=== PATIENT | female | born 1960 | race African-American/Black ===

== ENCOUNTER → 2023-10-25 09:37 | Outpatient (REF) | payer OTHER, SELFPAY | LOC: RCS 09:37 | PROVIDERS: ATTENDING PHYSICIAN Family Medicine | DX: Z13.6 Encounter for screening for cardiovascular disorders (principal) | CPT/HCPCS: 93005 ==

== ENCOUNTER → 2023-11-04 10:34 | Outpatient (REF) | payer OTHER, SELFPAY | LOC: RAD 10:34 | PROVIDERS: ATTENDING PHYSICIAN Family Medicine | DX: R10.9 Unspecified abdominal pain (principal) | CPT/HCPCS: 76700 ==

== ENCOUNTER → 2023-11-22 08:32 | Outpatient (REF) | payer OTHER, SELFPAY | LOC: RCS 08:32 | PROVIDERS: ATTENDING PHYSICIAN Family Medicine | DX: I45.0 Right fascicular block (principal) | CPT/HCPCS: 93306 ==

== ENCOUNTER → 2024-04-11 10:22 | Outpatient (REF) | payer OTHER, MEDICAID, SELFPAY | LOC: RAD 10:22 | PROVIDERS: ATTENDING PHYSICIAN Physician Assistant; FAMILY PHYSICIAN Family Medicine | DX: K59.00 Constipation, unspecified (principal) | CPT/HCPCS: 74018 ==

== ENCOUNTER 2024-04-28 13:26 | Emergency (ER) | payer OTHER, SELFPAY ==
[2024-04-28] VITALS (7 sets, daily range): BP systolic 123–156; BP diastolic 59–74; BMI 33.4
[2024-04-28] MEDS: TYLENOL 1000 MG PO (14:01)
[2024-04-28 14:14] LABS: % Basophils 0.2 % (0-2); % Immature Granulocytes 0.7 % (0-0.5); % Lymphocytes 4.5 % (20.5-51.1); % Neutrophils 89.6 % (42.2-75.2); Absolute Immature Granulocytes 0.1 10^3/uL (0-0.05); Absolute Lymphocytes 0.4 10^3/uL (1.2-3.4); Absolute Monocytes 0.4 10^3/uL (0.1-0.6); Absolute Neutrophils 7.8 10^3/uL (1.4-6.5); Hematocrit 39.5 % (37.0-47.0); Hemoglobin 12.8 g/dL (12.0-16.0); Mean Corp Hgb Conc. 32.4 g/dL (33.0-37.0); Mean Corpuscular Hgb 28.7 pg (27.0-31.0); Mean Corpuscular Volume 88.6 fL (81.0-99.0); Mean Platelet Volume 9.7 fL (7.4-10.4); Nucleated Red Blood Cells % 0 %; Platelet Count 184 10^3/uL (130-400); Red Blood Cell Count 4.46 10^6/uL (4.20-5.40); Red Cell Dist. Width 14.8 % (11.5-14.5); White Blood Cell Count 8.7 10^3/uL (4.8-10.8)
[2024-04-28 14:44] LABS: Lactic Acid 4.5 mmol/L (0.7-2.0)
[2024-04-28 14:45] LABS: Glucose 305 mg/dl (70-99)
[2024-04-28 14:46] LABS: Blood Urea Nitrogen 14 mg/dl (7-17); Calcium 11.1 mg/dl (8.4-10.2); Carbon Dioxide 22 mmol/L (22-30); Chloride 108 mmol/L (98-107); Estimated Creatinine Clearance 69 ml/min; Sodium 142 mmol/L (135-145); eGFR > 60.00
[2024-04-28 15:35] LABS: COVID-19 Antigen Negative (Negative)
--- NOTE | 2024-04-28 15:46 | ED.GENMED ---
History of Present Illness
General
Chief Complaint: Fever
Source: patient
Exam Limitations: none
Time Seen by Provider: 04/28/24 14:55
Nursing documentation reviewed up to this point in time: agreed with
History of Present Illness
History of Present Illness:
Patient with history of schizophrenia and schizoaffective disorder, presents to ED from [facility], secondary to fever. Patient reports decreased appetite along with mid abdominal discomfort. Denies vomiting or diarrhea. Denies headache.
Denies sore throat. Denies chest pain. Denies coughing. Denies rash. Denies dizziness.
Past History
Past History
ED Past Medical History: CAD, HTN, Hypothyroidism, Psychiatric and Other
ED Past Surgical History: None
Social History
Tobacco: Smoker
Alcohol: None
Drug: None
Personal: Single
Living: other ([facility])
Family History
Family History: Negative Diabetes, Hypertension or CAD
Review of Systems
Review of Systems
Allergies reviewed?: Yes
All Other Systems: ROS reviewed and negative except as documented in HPI and ROS
Constitutional: Reports fever
EENT: Reports no symptoms
Respiratory: Reports no symptoms; Denies cough
Cardiac: Reports no symptoms; Denies chest pain or palpitations
ABD/GI: Reports abdominal pain; Denies vomiting or diarrhea
: Reports no symptoms
Musculoskeletal: Reports no symptoms
Skin: Reports no symptoms
Neurological: Reports no symptoms
Phy Exam
Physical Exam
Physical Exam:
Physical Exam
General: no apparent distress, not acutely ill. febrile
Head: nc/at. eomi
Neck: supple. no meningeal signs.
Heart: tachycardic, no murmur. equal radial pulses.
Lungs: no acute respiratory distress. clear bilaterally
Abdomen: normal bowel sounds. not tender.
Neuro: alert and oriented. no focal neurological deficits
Skin: no rash
Psychiatric: well kept. interactive and cooperative
Extremities: no edema. no calf tenderness.
Sepsis
Sepsis Screening
Sepsis Assessment: Sepsis Ruled Out
Sepsis Screen
Sepsis Screen: Sepsis Ruled Out
Date: 04/28/24
Time: 22:50
Course
Orders/Labs/Results
Orders:
Orders
04/28/24 13:57
Basic Metabolic Panel Urgent
Complete Blood Count/With Diff Urgent
Lactic Acid Urgent
04/28/24 14:00
Acetaminophen [Tylenol] 1,000 mg .ROUTE .STK-MED ONE
04/28/24 14:01
Acetaminophen [Tylenol] 1,000 mg PO NOW STA
04/28/24 15:08
COVID-19 Antigen Urgent
Source: Nasal Swab
Influenza A+B Rapid Molecular Urgent
RADHA Source: Nasal Swab
Specimen Description:
04/28/24 15:11
CT Abd/pelvis W Iv Cont Urgent
Comment:
Reason For Exam: fever with periumbilical tenderness
04/28/24 16:45
0.9% Sodium Chloride 500 ml [Nss] 500 ml IV BOLUS
Ibuprofen [Motrin] 400 mg PO NOW STA
04/28/24 17:30
Lactic Acid Urgent
Abnormal Lab Results
04/28/24
13:57
MCHC 32.4 L g/dL
(33.0-37.0)
RDW 14.8 H %
(11.5-14.5)
Abs Immat Gran (auto) 0.1 H 10^3/uL
(0-0.05)
Absolute Neuts (auto) 7.8 H 10^3/uL
(1.4-6.5)
Absolute Lymphs (auto) 0.4 L 10^3/uL
(1.2-3.4)
Immature Gran % 0.7 H %
(0-0.5)
Neutrophils % 89.6 H %
(42.2-75.2)
Lymphocytes % 4.5 L %
(20.5-51.1)
Chloride 108 H mmol/L
(98-107)
Glucose 305 H mg/dl
(70-99)
Lactic Acid 4.5 H* mmol/L
(0.7-2.0)
Calcium 11.1 H mg/dl
(8.4-10.2)
04/28/24 13:57
04/28/24 13:57
Vital Signs
Initial and Last Documented VS:
Initial Vital Signs
Temp Pulse Resp BP Pulse Ox
102.8 F H 122 32 156/73 96
04/28/24 13:30 04/28/24 13:30 04/28/24 13:30 04/28/24 13:30 04/28/24 13:30
Last Documented Vital Signs
Temp Pulse Resp BP Pulse Ox
99.3 F 104 31 125/65 95
04/28/24 20:00 04/28/24 19:45 04/28/24 13:45 04/28/24 19:00 04/28/24 17:45
MDM/Problems Addressed
MDM/Problems Addressed:
History and exam consistent with symptoms secondary to influenza. Patient given Tylenol/Motrin along with IV fluids, with improvement in symptoms. Patient otherwise is stable to be discharged back to her residence. In light of patient's
underlying psychiatric history along with continual bowel difficulties, I do not feel that patient would benefit from Tamiflu at this time. As such, patient will be discharged back to her retirement, with recommendation to continue Tylenol/Motrin
for fever along with continual hydration.
*Critical Care Note
Total Time (30-74mins, 75-104mins- exclusive of procedures): Not Applicable
ED Attending Note
-
Portions of this chart may have been created with voice recognition software.� Occasional wrong word or��sound alike� substitutions may have occurred due to the inherent limitations of voice recognition software.
Discharge Plan
Departure
Patient Disposition: Home (Routine Discharge)
Date of Disposition: 04/28/24
Time of Disposition: 18:31
Patient with high blood pressure during this ER visit?: Yes
Condition: Good
Discharge Problem:
Influenza
Instructions: Flu in adults - ED discharge instructions
Prescriptions:
No Action
clozapine 100 MG tablet
300 mg PO BID
levothyroxine 100 MCG tablet
100 mcg PO DAILY
lithium carbonate 300 MG capsule
600 mg PO HS
ranitidine HCl [Zantac] 150 MG tablet
150 mg PO BID
docusate sodium 100 MG capsule
100 mg PO DAILY
lithium carbonate 300 MG tablet
300 mg PO .AM
ibuprofen 200 MG tablet
200 mg PO PRN PRN (Reason: pain)
hydroxyzine pamoate [Vistaril] 25 MG capsule
25 mg PO Q6HPRN PRN (Reason: anxiety)
calcium carbonate-vitamin D3 [Oystercal-D] 1 EACH tablet
1 tab PO BID
clozapine 150 MG tablet,disintegrating
150 mg PO .5PM
acetaminophen 325 MG tablet
650 mg PO Q6 PRN (Reason: pain)
loperamide 2 MG capsule
2 mg PO TID PRN (Reason: diarrhea)
melatonin 3 MG tablet
3 mg PO HS
magnesium hydroxide 30 ML suspension
30 ml PO HSPRN PRN (Reason: constipation)
albuterol sulfate [Ventolin HFA] 90 MCG/PUFF HFA aerosol inhaler
2 puff inhalation Q6 PRN (Reason: sob)
olopatadine [Pataday] 2.5 ML drops
1 drp BOTH EYES DAILY PRN (Reason: allergic conjunctivitis)
cholecalciferol (vitamin D3) 2,000 UNIT tablet
1,000 unit PO DAILY
desmopressin 0.1 MG tablet
0.2 mg PO BID
Anti Gas 200
30 ml PO . DIRECTED
Patient Comments:
antacid anti-gas 200 mg 20mg/5 ml concentration
calcium polycarbophil [Fiber-Tabs] 625 MG tablet
625 mg PO TID
diclofenac sodium 75 MG tablet,delayed release (DR/EC)
75 mg PO BID Qty: 14 0RF
Referrals:
Lucas Sequeira DO [Family Provider] -
Activity Restrictions/Additional Instructions:
As discussed, please follow-up with your primary care physician with any further concerns. In ED, you tested positive for influenza. Please continue take Tylenol/Motrin for fever control along with continual hydration.
Interventions
Interventions:
*Risk Screen - Suicide Last Done: 04/28/24 13:30
*General Assessment Last Done: 04/28/24 13:30
*Neglect/Abuse Screening Last Done: 04/28/24 13:30
ED- Fall Risk Assessment Last Done: 04/28/24 20:08
*ED COVID-19 Vaccine History Last Done: 04/28/24 13:30
*Nursing Disposition Last Done: 04/28/24 20:08
ED- Neurological Assessment Last Done: 04/28/24 15:29
ED-Skin Assessment Last Done: 04/28/24 15:50
Discharge Date and Time
Discharge Date/Time: 04/28/24 20:10
Print Language: NICARAGUAN
[2024-04-28] MEDS: MOTRIN 400 MG PO (17:09)
[2024-04-28] MEDS: NSS 500 IV (17:10)
--- NOTE | 2024-04-28 20:02 | EDRN ---
Report received, went in to let patient know she would be heading home soon, she needed to use restroom, patient ambulated into the restroom, changed brief, offered to change her pants, she did not want to change, patient was able to ambulate
without difficulty, back in bed and her ride home is here, will call facility to update as well.
== END 2024-04-28 20:10 | disposition home or self-care (01) ==
LOC: EMR 13:26
PROVIDERS: Emergency Medicine; EMERGENCY PHYSICIAN Emergency Medicine; FAMILY PHYSICIAN Family Medicine
DX: J11.1 Influenza due to unidentified influenza virus with other respiratory manifestations (principal); R10.9 Unspecified abdominal pain; Z11.52 Encounter for screening for COVID-19; R03.0 Elevated blood-pressure reading, without diagnosis of hypertension; F25.9 Schizoaffective disorder, unspecified; I25.10 Atherosclerotic heart disease of native coronary artery without angina pectoris; I10 Essential (primary) hypertension; E03.9 Hypothyroidism, unspecified; F17.200 Nicotine dependence, unspecified, uncomplicated; Z91.018 Allergy to other foods
CPT/HCPCS: 99284; 96360; 74177; 80048; 83605; 85025; 87502; 87811; Q9967

== ENCOUNTER 2024-05-02 00:27 | Emergency (ER) | payer OTHER, MEDICAID, SELFPAY ==
[2024-05-02] VITALS (8 sets, daily range): BP systolic 114–148; BP diastolic 58–95
[2024-05-02 02:48] LABS: % Basophils 0.3 % (0-2); % Immature Granulocytes 0.5 % (0-0.5); % Lymphocytes 20.8 % (20.5-51.1); % Monocytes 7.1 % (1.7-9.3); % Neutrophils 71.3 % (42.2-75.2); Absolute Lymphocytes 1.4 10^3/uL (1.2-3.4); Absolute Monocytes 0.5 10^3/uL (0.1-0.6); Absolute Neutrophils 4.7 10^3/uL (1.4-6.5); Hematocrit 36.7 % (37.0-47.0); Hemoglobin 11.5 g/dL (12.0-16.0); Mean Corp Hgb Conc. 31.3 g/dL (33.0-37.0); Mean Corpuscular Hgb 27.8 pg (27.0-31.0); Mean Corpuscular Volume 88.9 fL (81.0-99.0); Mean Platelet Volume 9.9 fL (7.4-10.4); Nucleated Red Blood Cells % 0 %; Platelet Count 209 10^3/uL (130-400); Red Blood Cell Count 4.13 10^6/uL (4.20-5.40); Red Cell Dist. Width 14.3 % (11.5-14.5); White Blood Cell Count 6.6 10^3/uL (4.8-10.8)
[2024-05-02 03:06] LABS: ALT (SGPT) 20 U/L (0-35); AST (SGOT) 17 U/L (14-36); Albumin 3.6 g/dl (3.5-5.0); Alkaline Phosphatase 81 U/L (38-126); Blood Urea Nitrogen 15 mg/dl (7-17); Calcium 10.6 mg/dl (8.4-10.2); Carbon Dioxide 28 mmol/L (22-30); Chloride 107 mmol/L (98-107); Glucose 141 mg/dl (70-99); Potassium 4.3 mmol/L (3.5-5.1); Sodium 143 mmol/L (135-145); Total Bilirubin 0.2 mg/dl (0.2-1.3); eGFR > 60.00
--- NOTE | 2024-05-02 03:21 | ED.GENMED ---
History of Present Illness
General
Chief Complaint: Cold/Flu/URI Symptoms
Source: patient and previous hospital records (ED visit April 28 with complaints of fever. Found to be positive for influenza A. Laboratory studies, CT abdomen pelvis were otherwise unremarkable)
Exam Limitations: none
Time Seen by Provider: 05/02/24 03:02
Nursing documentation reviewed up to this point in time: agreed with
History of Present Illness
History of Present Illness:
This is a 63-year-old woman who has history of schizophrenia, CAD, hypothyroidism, GERD, diabetes insipidus, smoker who resides at [facility].
She initially presented to this ED April 28 with complaints of fever as well as lower abdominal discomfort. No other associated symptoms. Found to be influenza A positive. COVID testing negative. Laboratory studies unremarkable. CT abdomen
pelvis was unremarkable. Due to multiple psychiatric medications, Tamiflu was not initiated and recommended supportive measures.
She returns this morning with complaints of cough, generalized fatigue. She has been taking Tylenol intermittently with last dose yesterday afternoon. Cough has been hacking, nonproductive. She denies vomiting nor diarrhea, no chest pain or
abdominal pain. She does admit to intermittent frontal headache. No neck nor back pain.
She continues to smoke cigarettes.
Past History
Past History
ED Past Medical History: CAD, HTN, Hypothyroidism, Psychiatric and Other
ED Past Surgical History: None
Social History
Tobacco: Smoker
Alcohol: None
Drug: None
Personal: Single
Living: other ([facility])
Family History
Family History: Negative Diabetes, Hypertension or CAD
Phy Exam
Physical Exam
Physical Exam:
GENERAL: 63-year-old woman appears her stated age, awake and alert, appears mildly fatigued but easily communicative. Frequent, harsh nonproductive cough is noted, no respiratory distress. Afebrile.
EYE: pupils equal and reactive. anicteric
NECK: Supple, nontender, no meningismus, no significant adenopathy. No JVD.
ENT: posterior pharynx is clear, oral mucosa is moist. TM clear b/l, nares patent.
CARDIAC: Regular rate and rhythm. no murmur.
LUNGS: no acute respiratory distress, diffuse expiratory wheezing bilaterally. No rales or rhonchi.
ABDOMEN: Soft, nondistended, without focal tenderness, no r/g, no cvat. normoactive BS.
NEUROLOGICAL: Alert and oriented x3, no focal neuro deficits. Motor strength is 5/5 bilaterally. Gross sensation is intact.
SKIN: Warm and dry, normal color, skin intact. No rash.
MUSCULOSKELETAL: No C/C/E. peripheral pulses are full and equal b/l. No palpable tenderness.
PSYCH: Mildly blunted affect. Easily communicative. Cooperative.
Course
Orders/Labs/Results
Orders:
Orders
05/02/24 02:26
CXR2 [CR Chest - 2 Views ] Urgent
Comment:
Reason For Exam: cough
05/02/24 02:34
CMP [Comprehensive Metabolic Panel] Urgent
Complete Blood Count/With Diff Urgent
05/02/24 03:20
Ipratropium/Albuterol Sulfate [Duoneb] 3 ml INH R NOW STA
Abnormal Lab Results
05/02/24
02:34
RBC 4.13 L 10^6/uL
(4.20-5.40)
Hgb 11.5 L g/dL
(12.0-16.0)
Hct 36.7 L %
(37.0-47.0)
MCHC 31.3 L g/dL
(33.0-37.0)
Glucose 141 H mg/dl
(70-99)
Calcium 10.6 H mg/dl
(8.4-10.2)
Total Protein 6.0 L g/dl
(6.3-8.2)
05/02/24 02:34
05/02/24 02:34
Vital Signs
Temp: 98.5 F
Initial and Last Documented VS:
Initial Vital Signs
Pulse Resp BP Pulse Ox
102 22 125/58 92
05/02/24 00:34 05/02/24 00:34 05/02/24 00:34 05/02/24 00:34
Last Documented Vital Signs
Temp Pulse Resp BP Pulse Ox
98.5 F 103 23 141/70 94
05/02/24 03:28 05/02/24 02:30 05/02/24 02:30 05/02/24 02:00 05/02/24 02:30
MDM/Problems Addressed
Differential Diagnosis Includes:
Patient presents with generalized fatigue, persistent cough and was found to be influenza A positive during ED visit April 28.
Exam notable for generalized expiratory wheezing but no respiratory distress. Pulse ox 94% on room air.
Concern for viral pneumonitis, asthmatic bronchitis related to influenza, concern for electrolyte abnormality.
Will check labs, chest x-ray.
Will give DuoNeb nebulizer for cough and wheezing.
Chronic conditions affecting care: CAD, Psychiatric illness and Other (Diabetes insipidus)
*Radiology
Radiology exam reviewed: preliminary read by ED provider (Chest x-ray concerning for faint hazy infiltrate right lower lobe versus overlying breast attenuation.)
*Pulse Oximetry
Patient hypoxic: no
*Differential Specialist Interpretation
Rate: normal
Interpretation: normal
Rhythm: sinus
*Critical Care Note
Total Time (30-74mins, 75-104mins- exclusive of procedures): Not Applicable
Update Note
Update Note:
05:15
Patient sleeps when undisturbed, respirations are easy nonlabored. No episodes of hypoxia.
Somewhat less cough after nebulizer treatment.
She does continue with some expiratory wheezing but increased air movement.
No rales no rhonchi on exam. Chest x-ray concerning for subtle infiltrate right lower lobe versus overlying breast attenuation. As labs are unremarkable and patient has known influenza A, she may have an element of viral pneumonitis. At this
point no indication for antibiotics.
Will prescribe albuterol inhaler for as needed cough, wheezing.
Discussed importance of staying well-hydrated on a daily basis, continue Tylenol as needed for fever, aches.
At this point no indication for hospitalization.
Will discharge back to [facility] with plan for prompt follow-up with PCP.
Patient has been encouraged to discontinue cigarettes as this is adding to her wheezing and cough.
ED Attending Note
-
Portions of this chart may have been created with voice recognition software.� Occasional wrong word or��sound alike� substitutions may have occurred due to the inherent limitations of voice recognition software.
Discharge Plan
Departure
Patient Disposition: Assisted Living
Date of Disposition: 05/02/24
Time of Disposition: 05:14
Patient with high blood pressure during this ER visit?: No
Discharge Problem:
Influenza A, Asthmatic bronchitis
Instructions: Quitting smoking for adults, Flu in adults - ED discharge instructions, Asthma in adults - ED discharge instructions
Prescriptions:
New
albuterol sulfate 90 mcg/actuation aerosol powdr breath activated
2 inh inhalation Q6H PRN (Reason: shortness of breath or wheezing) Qty: 1 0RF
No Action
clozapine 100 MG tablet
300 mg PO BID
levothyroxine 100 MCG tablet
100 mcg PO DAILY
lithium carbonate 300 MG capsule
600 mg PO HS
ranitidine HCl [Zantac] 150 MG tablet
150 mg PO BID
docusate sodium 100 MG capsule
100 mg PO DAILY
lithium carbonate 300 MG tablet
300 mg PO .AM
ibuprofen 200 MG tablet
200 mg PO PRN PRN (Reason: pain)
hydroxyzine pamoate [Vistaril] 25 MG capsule
25 mg PO Q6HPRN PRN (Reason: anxiety)
calcium carbonate-vitamin D3 [Oystercal-D] 1 EACH tablet
1 tab PO BID
clozapine 150 MG tablet,disintegrating
150 mg PO .5PM
acetaminophen 325 MG tablet
650 mg PO Q6 PRN (Reason: pain)
loperamide 2 MG capsule
2 mg PO TID PRN (Reason: diarrhea)
melatonin 3 MG tablet
3 mg PO HS
magnesium hydroxide 30 ML suspension
30 ml PO HSPRN PRN (Reason: constipation)
albuterol sulfate [Ventolin HFA] 90 MCG/PUFF HFA aerosol inhaler
2 puff inhalation Q6 PRN (Reason: sob)
olopatadine [Pataday] 2.5 ML drops
1 drp BOTH EYES DAILY PRN (Reason: allergic conjunctivitis)
cholecalciferol (vitamin D3) 2,000 UNIT tablet
1,000 unit PO DAILY
desmopressin 0.1 MG tablet
0.2 mg PO BID
Anti Gas 200
30 ml PO . DIRECTED
Patient Comments:
antacid anti-gas 200 mg 20mg/5 ml concentration
calcium polycarbophil [Fiber-Tabs] 625 MG tablet
625 mg PO TID
diclofenac sodium 75 MG tablet,delayed release (DR/EC)
75 mg PO BID Qty: 14 0RF
Referrals:
Lucas Sequeira DO [Family Provider] - Call in 1-3 days for appt
Interventions
Interventions:
*General Assessment Last Done: 05/02/24 00:36
*Neglect/Abuse Screening Last Done: 05/02/24 00:36
Discharge Date and Time
Print Language: [id number]
[2024-05-02] MEDS: DUONEB 3 ML INH (03:31)
== END 2024-05-02 06:36 ==
LOC: EMR 00:27
PROVIDERS: EMERGENCY PHYSICIAN Emergency Medicine; FAMILY PHYSICIAN Family Medicine
DX: J45.901 Unspecified asthma with (acute) exacerbation (principal); J10.1 Influenza due to other identified influenza virus with other respiratory manifestations; R53.83 Other fatigue; F20.9 Schizophrenia, unspecified; I25.10 Atherosclerotic heart disease of native coronary artery without angina pectoris; I10 Essential (primary) hypertension; K21.9 Gastro-esophageal reflux disease without esophagitis; E03.9 Hypothyroidism, unspecified; E23.2 Diabetes insipidus; F17.210 Nicotine dependence, cigarettes, uncomplicated; Z91.018 Allergy to other foods
CPT/HCPCS: 99283; 94640; 71046; 80053; 85025

== ENCOUNTER 2024-05-17 16:45 | Inpatient (IN) | payer MEDICARE, SELFPAY ==
[2024-05-17] VITALS (11 sets, daily range): BP systolic 111–143; BP diastolic 62–95
[2024-05-17 12:31] LABS: Glucose - Point of Care 307 mg/dl (70-99)
[2024-05-17 12:48] LABS: % Basophils 0.2 % (0-2); % Immature Granulocytes 0.6 % (0-0.5); % Lymphocytes 11.6 % (20.5-51.1); % Monocytes 4.3 % (1.7-9.3); % Neutrophils 83.3 % (42.2-75.2); Absolute Immature Granulocytes 0.1 10^3/uL (0-0.05); Absolute Lymphocytes 1.5 10^3/uL (1.2-3.4); Absolute Monocytes 0.6 10^3/uL (0.1-0.6); Hematocrit 40.6 % (37.0-47.0); Hemoglobin 12.5 g/dL (12.0-16.0); Mean Corp Hgb Conc. 30.8 g/dL (33.0-37.0); Mean Corpuscular Hgb 28.3 pg (27.0-31.0); Mean Corpuscular Volume 91.9 fL (81.0-99.0); Mean Platelet Volume 9.6 fL (7.4-10.4); Nucleated Red Blood Cells % 0 %; Platelet Count 318 10^3/uL (130-400); Red Blood Cell Count 4.42 10^6/uL (4.20-5.40); Red Cell Dist. Width 14.7 % (11.5-14.5); White Blood Cell Count 13.2 10^3/uL (4.8-10.8)
--- NOTE | 2024-05-17 12:51 | ED.GENMED ---
History of Present Illness
General
Chief Complaint: Change in Mental Status
Time Seen by Provider: 05/17/24 12:41
History of Present Illness
History of Present Illness:
63-year-old female with past medical history of hypothyroidism, diabetes insipidus, GERD, schizoaffective disorder, CAD who presents to the emergency room from [facility] ([facility] where she has resided since 2001); she
was referred to the emergency room by staff there due to frequent falls and multiple other odd symptoms over the past few weeks. I spoke to the staff at [facility] directly and they report the following: Patient apparently was in her normal
state of health in early April�normal state of health is that she is ambulatory with steady gait, awake and alert and oriented. Apparently around 04/27/2024 she started with weakness seem to be worse on the left side she had trouble with fine
motor skills and slurred speech; she was ultimately found to have a fever and was referred to the ER and diagnosed with influenza A. She was discharged back to facility and unfortunately few days later she had another fall and had some labored
breathing was discharged back to the facility with diagnosis of bronchitis in the setting of influenza. Since then although breathing has improved other symptoms seem to be worsening�she is having increased lethargy and spending more time sleeping
in bed. She is very weak and has difficulty with fine motor control and has been dropping cups and having trouble grasping things. She has had several minor falls over the past few weeks. She apparently has episodes where her speech is very
confused�staff describes 'word salad.' She is having bizarre behavior including wearing underwear over her pants, episodes where she says 'I feel like I am falling' and she starts jumping around in place--these are just 2 examples according to
staff. Symptoms were discussed with primary physician and according to staff she was referred to the emergency room to be evaluated; staff does note that she had another minor fall today but no apparent serious injuries. Patient is very lethargic,
oriented x 2 and very limited as a historian at this point in time. She cannot tell me the year, cannot tell me why she is here and does not answer questions consistently. She is on lithium�staff reports that they check levels, last check was
04/20 prior to symptom onset and this was normal at 0.8. She is on other neuropsychiatric medicines including clozapine, hydroxyzine but no recent changes or adjustments.
Past History
Past History
ED Past Medical History: CAD, HTN, Hypothyroidism, Psychiatric and Other
ED Past Surgical History: None
Social History
Tobacco: Smoker
Alcohol: None
Drug: None
Personal: Single
Living: other ([facility])
Family History
Family History: Negative Diabetes, Hypertension or CAD
Review of Systems
Review of Systems
Unable to obtain full review of systems at this time due to: other (Altered mentation)
All Other Systems: Not applicable
Phy Exam
Physical Exam
Physical Exam:
General: Sleeping in bed lethargic, arousable to touch and opens eyes briefly before closing them again; she is oriented x 2 and only occasionally answers questions
Head: Normocephalic, atraumatic
Eyes: Conjunctiva normal, pupils are pinpoint, extraocular movements are intact
Throat: Airway intact, handling secretions, poor dentition, somewhat dry mucous membranes
Neck: Trachea midline, supple without meningismus
Lungs: Clear to auscultation bilaterally, no wheezing, rales, rhonchi
Heart: Tachycardia with regular rhythm, no murmurs, gallops, or rubs
Abd: Soft, non distended, nontender
Neuro: No gross cranial nerve deficits although patient not fully cooperative with intensive examination, speech is somewhat slurred when she speaks; she is following commands but inconsistently, she is moving all extremities equally without any
obvious deficit, responded to painful stimuli in all extremities
Extremities: Warm and well-perfused
Scores
Heart Failure Risk
Heart Failure Risk Score: Not Applicable
Heart Score for Chest Pain Patients
STEMI patient?: Not applicable
Withdrawal Assessment of Alcohol
Withdrawal Assessment Completed?: Not applicable
Course
Orders/Labs/Results
Orders:
Orders
05/17/24 12:26
Electrocardiogram (*1) Urgent
Reason for Study: Tachycardia
EKG- Treatment ONCE
05/17/24 12:37
Alcohol Urgent
Complete Blood Count/With Diff Urgent
Comprehensive Metabolic Panel Urgent
Minoa Urgent
Comment: ADD ON
Magnesium Urgent
Comment: ADD ON
05/17/24 12:53
Add On- LAB Urgent
Tests Added?: Alcohol, Magnesium, Minoa, TSH
CR Chest - 2 Views Urgent
Comment:
Reason For Exam: eval for pna-weakness
05/17/24 12:56
CT Head W/o Iv Contrast Urgent
Comment:
Reason For Exam: fal, lethargic
05/17/24 13:04
Drug Screen, Urine [Urine Drug Abuse Screen] Urgent
Date Specimen was Collected: 05/17/24
Time Specimen was Collected: 13:02
Urinalysis Reflex To Culture Urgent
Date Specimen was Collected: 05/17/24
Time Specimen was Collected: 13:03
05/17/24 13:17
NEUROLOGY CONSULT Urgent
Consulting Provider: Felecia Suarez
Was physician already notified: Yes
05/17/24 13:43
0.9% Sodium Chloride 1000 ml [Nss] 1,000 ml IV BOLUS
05/17/24 14:13
Free T4 Urgent
NT-proBNP Urgent
TSH Reflex To Free T4 Urgent
05/17/24 15:02
PTH [Intact PTH Includes Calcium] Routine
Total CK [Creatine Phosphokinase] Routine
05/17/24 15:03
Vitamin B12 Routine
05/17/24 15:27
Ammonia Routine
05/17/24 15:36
Procalcitonin Urgent
PCT Algorithmm Indication: Respiratory
05/17/24 15:45
Blood Culture Q30M
RADHA Source: Blood/Venous
Specimen Description:
05/17/24 16:15
Blood Culture Q30M
RADHA Source: Blood/Venous
Specimen Description:
Abnormal Lab Results
05/17/24 05/17/24 05/17/24
12:28 12:37 13:04
WBC 13.2 H 10^3/uL
(4.8-10.8)
MCHC 30.8 L g/dL
(33.0-37.0)
RDW 14.7 H %
(11.5-14.5)
Abs Immat Gran (auto) 0.1 H 10^3/uL
(0-0.05)
Absolute Neuts (auto) 11.0 H 10^3/uL
(1.4-6.5)
Immature Gran % 0.6 H %
(0-0.5)
Neutrophils % 83.3 H %
(42.2-75.2)
Lymphocytes % 11.6 L %
(20.5-51.1)
Sodium 147 H mmol/L
(135-145)
Chloride 112 H mmol/L
(98-107)
BUN 23 H mg/dl
(7-17)
Creatinine 1.1 H mg/dL
(0.6-1.0)
Glucose 292 H mg/dl
(70-99)
Calcium 10.4 H mg/dl
(8.4-10.2)
TSH (Reflex)
Ur Tricyclics Screen Positive H
(Negative)
Minoa 1.3 H mmol/L
(0.6-1.2)
POC Glucose 307 H mg/dl
(70-99)
05/17/24
14:13
WBC
MCHC
RDW
Abs Immat Gran (auto)
Absolute Neuts (auto)
Immature Gran %
Neutrophils %
Lymphocytes %
Sodium
Chloride
BUN
Creatinine
Glucose
Calcium
TSH (Reflex) 0.13 L uIU/ml
(0.47-4.68)
Ur Tricyclics Screen
Minoa
POC Glucose
05/17/24 12:37
05/17/24 12:37
Vital Signs
Initial and Last Documented VS:
Initial Vital Signs
BP
127/73
05/17/24 12:24
Last Documented Vital Signs
Temp Pulse Resp BP Pulse Ox
36.6 C 112 22 127/73 98
05/17/24 12:26 05/17/24 12:45 05/17/24 12:45 05/17/24 12:26 05/17/24 12:45
MDM/Problems Addressed
Differential Diagnosis Includes:
Minoa toxicity, traumatic head injury/intracranial hemorrhage, toxic metabolic encephalopathy secondary to infection such as UTI or pneumonia, stroke
MDM/Problems Addressed:
63-year-old female presents to the ER for evaluation of progressive lethargy, generalized weakness, discoordination, slurred speech, bizarre behavior ongoing for the past few weeks in the setting of recent bout of influenza/bronchitis. She also has
had multiple minor falls according to staff. Referred to the ER for evaluation today. She is tachycardic but vital signs are otherwise normal. Her physical exam is as above. Labs sent off including a CBC and a CMP, thyroid studies, lithium
levels. Check urinalysis. Check CT head. Check an EKG. Check chest x-ray. Case discussed with neurology for consultation.
CT head negative for any acute pathology. Labs reviewed CBC shows leukocytosis to 13.2. CMP shows hyponatremia to 147, JORDAN with a creatinine of 1.1. Her glucose is 292. Clinically she appears dehydrated but her chest x-ray indicates some signs
concerning for possible pulmonary edema; will continue with cautious fluid resuscitation as clinically her status has improved slightly with 500 cc of fluid�she is slightly more awake, she says she feels 'fine.' She has acceptable pulse ox and
respiratory rate. Her heart rate is improving. Neurology consultation is pending. Added proBNP. Continue to monitor closely.
Her proBNP is completely negative and she does not appear overtly volume overloaded she has no known history of heart failure and in fact she looks hypovolemic. Overall I wonder if findings on chest x-ray represent interstitial pneumonia rather
than pulmonary edema/CHF�she has leukocytosis, hyperglycemia, tachycardia, tachypnea, and had recent influenza. Add procalcitonin. Will cover with antibiotics. Send off blood cultures prior to antibiotic treatment. Will admit for continued
monitoring and workup of change in mental status�at this point working diagnosis is toxic metabolic encephalopathy secondary to suspected pneumonia status post recent influenza infection. Case discussed with hospitalist.
Chronic conditions affecting care:
Schizoaffective disorder
*Radiology
Radiology exam reviewed: preliminary read by ED provider and radiology read reviewed
*Pulse Oximetry
Patient hypoxic: no
*EKG
Interpreted by ED Provider?: Yes
Heart Rate: 113
Rate: tachycardiac
Rhythm: sinus and sinus tachycardia
Interval: normal interval
QRS Pattern: right bundle branch block
Ischemia: non-specific ST changes
*Critical Care Note
Total Time (30-74mins, 75-104mins- exclusive of procedures): Not Applicable
Data Reviewed
Source: patient, records, ambulance crew and halfway
Patient Management
Discussion with other providers: Hospitalist (Discussed with hospitalist), [employer] (Discussed with neurology) and longterm staff (Discussed directly with staff at [facility])
Escalation/DeEscalation of care consider admission/obs:
Admission indicated
ED Attending Note
-
Portions of this chart may have been created with voice recognition software.� Occasional wrong word or��sound alike� substitutions may have occurred due to the inherent limitations of voice recognition software.
Discharge Plan
Departure
Patient Disposition: Admit
Date of Disposition: 05/17/24
Time of Disposition: 15:46
Admit to doctor: Brock
Presentation/result/management discussed w/ accepting MD/DO: Hospitalist
Discharge Problem:
Encephalopathy, Pneumonia
Prescriptions:
No Action
clozapine 100 MG tablet
200 mg PO BID
levothyroxine 100 MCG tablet
100 mcg PO DAILY
lithium carbonate 300 MG capsule
600 mg PO HS
docusate sodium 100 MG capsule
100 mg PO DAILY
lithium carbonate 300 MG tablet
300 mg PO DAILY
acetaminophen 325 MG tablet
650 mg PO Q6HPRN PRN (Reason: mild pain)
melatonin 3 MG tablet
3 mg PO HS
polyethylene glycol 3350 [Miralax] 17 gram Powder In Packet
17 g PO DAILY
promethazine 6.25 mg/5 mL Syrup
12.5 mg PO Q6HPRN PRN (Reason: cough)
metformin 1,000 mg Tablet
1,000 mg PO BID
hydroxyzine HCl [Atarax] 25 mg Tablet
25 mg PO Q6HPRN PRN (Reason: anxiety)
psyllium husk [Reguloid (psyllium husk)] 0.52 gram Capsule
1.04 g PO DAILY
calcium carbonate-vitamin D3 [Calcium 500 + D] 500 mg-10 mcg (400 unit) Tablet
1 tab PO BID
Refresh Optive 0.5-0.9 % Drops
1 drp BOTH EYES BIDPRN PRN (Reason: dry eyes)
diclofenac sodium [Voltaren] 1 % Gel
0 g TOPICAL TIDPRN PRN (Reason: knee)
Referrals:
Lucas Sequeira DO [Family Provider] -
Interventions
Interventions:
*Risk Screen - Suicide Last Done: 05/17/24 12:26
*General Assessment Last Done: 05/17/24 12:26
*Neglect/Abuse Screening Last Done: 05/17/24 12:26
ED-Psychological Assessment Last Done: 05/17/24 12:48
ED- Neurological Assessment Last Done: 05/17/24 12:48
Discharge Date and Time
Print Language: CAPE VERDEAN
[2024-05-17 13:01] LABS: ALT (SGPT) 15 U/L (0-35); AST (SGOT) 15 U/L (14-36); Albumin 3.7 g/dl (3.5-5.0); Alkaline Phosphatase 96 U/L (38-126); Blood Urea Nitrogen 23 mg/dl (7-17); Calcium 10.4 mg/dl (8.4-10.2); Carbon Dioxide 23 mmol/L (22-30); Chloride 112 mmol/L (98-107); Glucose 292 mg/dl (70-99); Potassium 4.4 mmol/L (3.5-5.1); Sodium 147 mmol/L (135-145); Total Bilirubin 0.2 mg/dl (0.2-1.3); Total Protein 6.4 g/dl (6.3-8.2); eGFR 55.76
[2024-05-17 13:21] LABS: Urine Albumin Negative (Neg - Trace); Urine Bilirubin Negative (Negative); Urine Character Clear (Clear); Urine Color Yellow; Urine Glucose Negative (Negative); Urine Ketone Negative (Negative); Urine Leukocyte Negative (Negative); Urine Nitrite Negative (Negative); Urine Occult Blood Negative (Negative); Urine Urobilinogen Negative (Neg - 1+)
[2024-05-17 13:25] LABS: Lithium 1.3 mmol/L (0.6-1.2); Magnesium 1.9 mg/dl (1.6-2.3)
[2024-05-17 13:45] LABS: Amphetamines Negative (Negative); Barbiturates Negative (Negative); Benzodiazepines Negative (Negative); Buprenorphine Negative (Negative); Cocaine Negative (Negative); Marijuana Negative (Negative); Methadone Negative (Negative); Methamphetamines Negative (Negative); Opiates Negative (Negative); Phencyclidine Negative (Negative); Tricyclic Antidepressants Positive (Negative)
[2024-05-17] MEDS: NSS 1000 IV ×2 (14:03→23:00)
[2024-05-17 14:44] LABS: Alcohol None Detected
--- NOTE | 2024-05-17 14:58 | CON.NEURO ---
Consultation
Order
Date of Consultation: 05/17/24
Requesting Provider: Curly Minor MD
Reason for Consult: encephalopathy
Neurology Consultation Note.
HPI: This is a 63-year-old woman who presented to [facility] with encephalopathy. According to EMR patient has had lethargy and multiple falls since diagnosis of influenza A /bronchitis in April 2024.
ER VS: 123/73, 115, afebrile
EKG: Sinus tachycardia, QTc Int : 507 ms.
PDMP:none
Labs: FS-307, sodium�147, creatinine�1.1, calcium�10.4, normal albumin, WBCs 13.2, normal hemoglobin, platelets, urine tox�positive for tricyclic's, lithium level�1.3 (0.6-1.2 mmol/L), neg ETOh, unremarkable urinalysis
CT head wo contrast-no acute abnormalities, cranial hyperostosis
CXR-mild prominence of the central vasculature concerning for pulmonary edema
PMH: Psychotic disorder, NOS, diabetes insipidus, CAD, RBBB, DM, hypothyroidism, insomnia, GERD, nicotine addiction, asthma
PSH: Thyroidectomy
SH: [facility] resident since 2001
FH:unknown
All: Harper
ROS: neg for headache, chest pain, abdominal pain
General: Well developed. In no acute distress.
Cardio: Regular rate and rhythm without murmur. Extremities are without cyanosis or edema.
Neuro:
Mental Status: Alert, oriented to name, hospital, . Impaired attention and increased processing time. Can read.
Cranial Nerves: R exophonia on primary gaze. Pupils are equally round and reactive to light. EOMs full. Visual burdick full to confrontation. No ptosis. No nystagmus. V1-V3 intact to light touch and pinprick bilaterally, symmetric. Face
symmetric. Normal hearing AU. The palate elevated well. SCMs and traps 5/5. Tongue midline. Mild dysarthria.
Motor: Normal bulk and tone. No pronator or arm drift. Strength 5/5 throughout. No clonus.
Reflexes: neg grasp BL
Sensory: limited due to poor attention
Coordination: No dysmetria or tremor.
Gait: deferred
Assessment and Plan:
I. Multifactorial encephalopathy (metabolic (hyponatremia, uremia, hyperglycemia), toxic)
II. Hypernatremia
III. Psychotic disorder, NOS
-Aspiration precautions.
-Avoid cerebral hypoperfusion, SIDE SAWYER suppressants and anticholinergic medications.
-please check TSH, free T4, vit B12, ammonia, CK,
-Brain MRI wo lonny
-PT
-Will follow
I personally reviewed all radiology and labs along with past medical records pertinent to current medical problems. Total time spent in patient care is 60 minutes.
Thank you for allowing us to participate in the care of this patient. We will continue to follow. Please do not hesitate to contact us with any questions or concerns.
Subjective/Objective
Subjective Data
Date of Service: May 17, 2024
Objective Data
Vital Signs
Temp Pulse Resp BP Pulse Ox
36.6 C 112 22 127/73 98
05/17/24 12:26 05/17/24 12:45 05/17/24 12:45 05/17/24 12:26 05/17/24 12:45
Lab Results
05/17/24 12:37
05/17/24 12:37
Sodium 147 mmol/L (135-145) H 05/17/24 12:37
Potassium 4.4 mmol/L (3.5-5.1) 05/17/24 12:37
BUN 23 mg/dl (7-17) H 05/17/24 12:37
Glucose 292 mg/dl (70-99) H 05/17/24 12:37
Calcium 10.4 mg/dl (8.4-10.2) H 05/17/24 12:37
Ur Buprenorphine Negative (Negative) 05/17/24 13:04
Patient Allergies
oranges Allergy (Uncoded 05/17/24 12:26)
SEE BELOW
Medications
-
Home Medications
�Medication �Instructions �Recorded
clozapine 100 mg tablet 200 mg PO BID 10/05/11
docusate sodium 100 mg capsule 100 mg PO DAILY 10/05/11
levothyroxine 100 mcg tablet 100 mcg PO DAILY 10/05/11
lithium carbonate 300 mg capsule 600 mg PO HS 10/05/11
lithium carbonate 300 mg tablet 300 mg PO DAILY 10/05/11
acetaminophen 325 mg tablet 650 mg PO Q6HPRN PRN mild pain 07/30/18
melatonin 3 mg tablet 3 mg PO HS 07/30/18
calcium 500 mg (as 1 tab PO BID 05/17/24
carbonate)-vitamin D3 10 mcg (400
unit) tablet (Calcium 500 + D)
carboxymethylcellulose 0.5 1 drp BOTH EYES BIDPRN PRN dry eyes 05/17/24
%-glycerin 0.9 % eye drops
(Refresh Optive)
diclofenac sodium 1 % topical gel 0 g topical TIDPRN PRN knee 05/17/24
hydroxyzine HCl 25 mg tablet 25 mg PO Q6HPRN PRN anxiety 05/17/24
metformin 1,000 mg tablet 1,000 mg PO BID 05/17/24
polyethylene glycol 3350 17 gram 17 g PO DAILY 05/17/24
oral powder packet (Miralax)
promethazine 6.25 mg/5 mL oral 12.5 mg PO Q6HPRN PRN cough 05/17/24
syrup
psyllium husk 0.52 gram capsule 1.04 g PO DAILY 05/17/24
Vital Signs and Labs
-
Vital Signs and Labs:
Vital Signs
Temp Pulse Resp BP Pulse Ox
36.6 C 112 22 127/73 98
05/17/24 12:26 05/17/24 12:45 05/17/24 12:45 05/17/24 12:26 05/17/24 12:45
Lab Results
05/17/24 12:37
05/17/24 12:37
Sodium 147 mmol/L (135-145) H 05/17/24 12:37
Potassium 4.4 mmol/L (3.5-5.1) 05/17/24 12:37
BUN 23 mg/dl (7-17) H 05/17/24 12:37
Glucose 292 mg/dl (70-99) H 05/17/24 12:37
Calcium 10.4 mg/dl (8.4-10.2) H 05/17/24 12:37
Kvn-Q-Vfwqwjucris Pept < 20.0 pg/ml 05/17/24 14:13
Ur Buprenorphine Negative (Negative) 05/17/24 13:04
Home Medications
-
Home Medications
clozapine 100 mg tablet 200 mg PO BID 10/05/11
docusate sodium 100 mg capsule 100 mg PO DAILY 10/05/11
levothyroxine 100 mcg tablet 100 mcg PO DAILY 10/05/11
lithium carbonate 300 mg capsule 600 mg PO HS 10/05/11
lithium carbonate 300 mg tablet 300 mg PO DAILY 10/05/11
acetaminophen 325 mg tablet 650 mg PO Q6HPRN PRN mild pain 07/30/18
melatonin 3 mg tablet 3 mg PO HS 07/30/18
calcium 500 mg (as carbonate)-vitamin D3 10 mcg (400 unit) tablet (Calcium 500 + D) 1 tab PO BID 05/17/24
carboxymethylcellulose 0.5 %-glycerin 0.9 % eye drops (Refresh Optive) 1 drp BOTH EYES BIDPRN PRN dry eyes 05/17/24
diclofenac sodium 1 % topical gel 0 g topical TIDPRN PRN knee 05/17/24
hydroxyzine HCl 25 mg tablet 25 mg PO Q6HPRN PRN anxiety 05/17/24
metformin 1,000 mg tablet 1,000 mg PO BID 05/17/24
polyethylene glycol 3350 17 gram oral powder packet (Miralax) 17 g PO DAILY 05/17/24
promethazine 6.25 mg/5 mL oral syrup 12.5 mg PO Q6HPRN PRN cough 05/17/24
psyllium husk 0.52 gram capsule 1.04 g PO DAILY 05/17/24
[2024-05-17 15:04] LABS: NT-proBNP < 20.0 pg/ml
[2024-05-17 15:17] LABS: TSH Reflex To Free T4 0.13 uIU/ml (0.47-4.68)
[2024-05-17 15:46] LABS: Free T4 1.27 ng/dl (0.78-2.19)
--- NOTE | 2024-05-17 15:53 | HPS.HSE ---
Family Physician
-
Family Physician: Lucas Sequeira
Chief Complaint
-
weak
History of Present Illness
63-year-old female with past medical history of hypothyroidism, diabetes insipidus, GERD, schizoaffective disorder, CAD who presents to the emergency room from [facility] due to frequent falls. patient is poor historian. not able to provide any
meaningful story.as per note Patient apparently was in her normal state of health in early April�normal state of health is that she is ambulatory with steady gait, awake and alert and oriented. Apparently around 04/27/2024, she is very weak,
worse on the left side. she has trouble walking and trouble with speech as well.she was tested positive for Influenza at that time. a week after, she as noted to have and bronchitis and was treated with abx. she has not felt better at all since
then. she was noted to have worsening lethargy, sleeping more than usual. her speech is slurred and does not have strength to hold or grasp anything wither her hand. Today she had fall again and sent in for further evaluation.
admitting for further management.
Medical History
Past Medical History
Past Medical History: Reports Other
Additional Past Medical History:
Diabetes
Hypothyroidism
Asthma
GERD
Bipolar
Schizophrenia
Mahaffey use
Hypocalcemia
Constipation
Past Surgical History: Reports Other
Additional Past Surgical History:
Thyroidectomy
Social History
Unable to obtain full social history at this time due to: Acuity
Family History
Family History: Not pertinent
Allergies / Home Medications
Allergies reflects when Allergies were last updated in [facility].
Home Medications with original date entered in [facility]
Allergy/Medication List:
Allergies
Allergy/AdvReac Type Severity Reaction Status Date / Time
oranges Allergy SEE BELOW Uncoded 05/17/24 12:26
Home Medications
clozapine 100 mg tablet 200 mg PO BID 10/05/11
docusate sodium 100 mg capsule 100 mg PO DAILY 10/05/11
levothyroxine 100 mcg tablet 100 mcg PO DAILY 10/05/11
lithium carbonate 300 mg capsule 600 mg PO HS 10/05/11
lithium carbonate 300 mg tablet 300 mg PO DAILY 10/05/11
acetaminophen 325 mg tablet 650 mg PO Q6HPRN PRN mild pain 07/30/18
melatonin 3 mg tablet 3 mg PO HS 07/30/18
calcium 500 mg (as carbonate)-vitamin D3 10 mcg (400 unit) tablet (Calcium 500 + D) 1 tab PO BID 05/17/24
carboxymethylcellulose 0.5 %-glycerin 0.9 % eye drops (Refresh Optive) 1 drp BOTH EYES BIDPRN PRN dry eyes 05/17/24
diclofenac sodium 1 % topical gel 0 g topical TIDPRN PRN knee 05/17/24
hydroxyzine HCl 25 mg tablet 25 mg PO Q6HPRN PRN anxiety 05/17/24
metformin 1,000 mg tablet 1,000 mg PO BID 05/17/24
polyethylene glycol 3350 17 gram oral powder packet (Miralax) 17 g PO DAILY 05/17/24
promethazine 6.25 mg/5 mL oral syrup 12.5 mg PO Q6HPRN PRN cough 05/17/24
psyllium husk 0.52 gram capsule 1.04 g PO DAILY 05/17/24
Review of Systems
-
Unable to obtain full review of systems at this time due to: Acuity
Physical Exam
Vital Signs
Vital Signs
Temp Pulse Resp BP Pulse Ox
98 F 103 28 116/95 97
05/17/24 12:26 05/17/24 15:45 05/17/24 15:30 05/17/24 15:00 05/17/24 15:15
Physical Exam
General: Well Developed, Well Nourished and No Apparent Distress
HEENT: NormoCephalic, Moist mucous membranes and Atraumatic
Respiratory: Clear
Cardiac: S1/S2 and Regular Rhythm; No Murmur or Rub
GI: Soft, Non Tender, Non Distended and Normal Bowel Sounds; No Organomegaly
Rectal: Deferred by Provider
Musculoskeletal: No Clubbing, No Cyanosis and No Edema
Skin: No Rash
Neuro: Nonfocal/grossly intact
Psych: Calm
Laboratory Results
-
05/17/24 12:37
05/17/24 12:37
Laboratory Results
Total Bilirubin 0.2 mg/dl (0.2-1.3) 05/17/24 12:37
AST 15 U/L (14-36) 05/17/24 12:37
ALT 15 U/L (0-35) 05/17/24 12:37
Alkaline Phosphatase 96 U/L (38-126) 05/17/24 12:37
Data Reviewed
-
Diagnostic Radiology: Report Reviewed by me
CT Scan: Report Reviewed by me
Lab Data: Labs Reviewed by me
Impression/Plan
-
# Metabolic encephalopathy unclear cause
-Sepsis as evident by WBC 13.0, tachycardia
-Head CT with no acute intracranial abnormality
-Chest x-ray with impression of Mild prominence of the central vasculature concerning for pulmonary edema. Progressed. Clinical and laboratory correlation recommended.Limited inspiration.Mild cardiomegaly. New
-obtain VBG
-hold any sedative meds
-speech consulted
-PT/OT consulted
-neuro consulted
# Acute kidney injury/hypernatremia likely dehydration
-Sodium 147, creatinine 1.1
-received normal saline in ER
-0.45ns continued
-monitor BMP
#Schizophrenia
-clozapine continued
#Hypothyroidism
-Continue Synthroid.
#DVT prophylaxis
-heparin sq
#coDE status
-full code
[2024-05-17 16:17] LABS: Ammonia < 9 umol/L (9-30)
[2024-05-17 16:37] LABS: Procalcitonin 0.06 ng/ml (0.0-0.25)
[2024-05-17 16:47] LABS: Calcium 10.6 mg/dl (8.4-10.2); Creatine Phosphokinase 22 U/L (30-135)
[2024-05-17 17:45] LABS: Vitamin B12 380 pg/ml (239-931)
[2024-05-17 18:00] LABS: Venous Blood Gas B.E. -0.2 mmol/L (-4 to +4); Venous Blood Gas HCO3 25.9 mmol/L (22-27); Venous Blood Gas O2 Sat % 98.1 %; Venous Blood Gas pCO2 47 mmHg (35-48); Venous Blood Gas pH 7.35 (7.32-7.43); Venous Blood Gas pO2 86 mmHg (30-50)
[2024-05-17 18:28] LABS: COVID-19 Antigen Negative (Negative)
[2024-05-17] MEDS: D5/0.45%NACL 1000 IV (18:36)
[2024-05-17] MEDS: NOVOLOG FLEXPEN-LOW RESISTANCE SC (18:37)
[2024-05-17 18:38] LABS: Glucose - Point of Care 119 mg/dl (70-99)
[2024-05-17] MEDS: HEPARIN 5000 UNITS SC (19:34)
[2024-05-18] VITALS: BP 123/65
[2024-05-18 00:18] LABS: Glucose - Point of Care 170 mg/dl (70-99)
[2024-05-18 03:00] VITALS: BP 128/67
[2024-05-18 06:16] LABS: Glucose - Point of Care 144 mg/dl (70-99)
[2024-05-18] MEDS: SYNTHROID 100 MCG PO (06:29)
--- NOTE | 2024-05-18 09:55 | PTOTSP ---
SPEECH THERAPY SWALLOW EVALUATION:
Patient exhibits clinical signs of oropharyngeal dysphagia, likely chronic related to history of schizoaffective disorder/GERD and acutely exacerbated by multifactorial encephalopathy. Patient remains at HIGH RISK for aspiration and related
complications due to confusion/impulsivity and impaired cognitive status. No over signs of aspiration at this time. Recommend IDDSI Level 4 Puree diet, thin liquids. Medications crushed in puree. Aspiration precautions: 100% supervision and 1:1
assistance; Upright positioning; Only feed when awake/alert; Small single sips only (pinch straw to limit size/rate of intake); Monitor for signs of aspiration; D/c oral diet if any decline in mental/respiratory status. Oral care 3x/day to reduce
risk for nosocomial infection. ST to follow, assess diet tolerance and modify as appropriate, determine indication for instrumental assessment of swallowing as appropriate, monitor CXR and labs, and provide continued diagnostic swallow therapy as
appropriate.
RECOMMEND:
1) IDDSI Level 4 Puree diet, thin liquids
2) Medications crushed in puree
3) Aspiration precautions: 100% supervision and 1:1 assistance; Upright positioning; Only feed when awake/alert; Small single sips only (pinch straw to limit size/rate of intake); Monitor for signs of aspiration; D/c oral diet if any decline in
mental/respiratory status
4) Oral care 3x/day
5) ST to follow
--- NOTE | 2024-05-18 09:57 | CM ---
CM reviewed medical records. Patient is a resident of [facility]. Plan for patient to return on discharge.
PLAN: return to [facility].
[2024-05-18 10:02] LABS: Hematocrit 38.9 % (37.0-47.0); Hemoglobin 12.2 g/dL (12.0-16.0); Mean Corp Hgb Conc. 31.4 g/dL (33.0-37.0); Mean Corpuscular Hgb 28.4 pg (27.0-31.0); Mean Corpuscular Volume 90.7 fL (81.0-99.0); Mean Platelet Volume 9.6 fL (7.4-10.4); Platelet Count 301 10^3/uL (130-400); Red Blood Cell Count 4.29 10^6/uL (4.20-5.40); Red Cell Dist. Width 14.7 % (11.5-14.5); White Blood Cell Count 10.9 10^3/uL (4.8-10.8)
[2024-05-18 10:27] VITALS: BP 139/68; BP 146/80
[2024-05-18 10:31] LABS: Blood Urea Nitrogen 17 mg/dl (7-17); Calcium 10.6 mg/dl (8.4-10.2); Carbon Dioxide 23 mmol/L (22-30); Chloride 122 mmol/L (98-107); Glucose 174 mg/dl (70-99); Potassium 4.2 mmol/L (3.5-5.1); Sodium 156 mmol/L (135-145); eGFR > 60.00
--- NOTE | 2024-05-18 12:11 | W.PN.HOSP.TC ---
Today's Communication/Plan
-
Hold medications
Resume lithium regimen and clozapine 100 mg twice daily if continuing to improve
F/U MRI brain
Start half-normal saline
Assessment / Plan
Assessment / Plan
#Acute metabolic encephalopathy
-Suspect secondary to oversedation with psychotropic regimen
-No signs of hypercapnia, or acute neurologic issue.
-[place] elevated though only mildly so, unlikely cause
-Mental status has improved since Home regimen was put on hold
-Will continue to hold clozapine, lithium, hydroxyzine for now
-Neurology following, recommended MRI which is pending, we will follow-up
-Plan to resume medications slowly and at lower dose when back to baseline
#Acute on chronic hypernatremia
#Chronic nephrogenic DI
-has chronically elevated sodium due to nephrogenic DI from lithium
-Sodium 147 on arrival, was given isotonic fluids for JORDAN, sodium up to 156
-Do not suspect that this is contributing to her mentation to significant degree
-Transition isotonic fluids to half-normal saline to replace free water deficit
-Trend BMP
#Leukocytosis
-Suspect possible aspiration event prior to arrival
-Viral panel is negative, no obvious sign of bacterial infection
-Has not had any significant fever since here, not on antibiotics
-Continue to trend CBC and temperature curve
#Prerenal JORDAN
-Likely secondary to reduced intake, resolved with IVF
#T2DM with hyperglycemia
-Home metformin held, on ISS with Accu-Cheks
-Hyperglycemia and unlikely high enough to cause encephalopathy
-Blood glucose goal 140-180
#QTc prolongation
-Likely secondary to chronic psychotropic medicines
-Home regimen currently held
-Monitor on telemetry
#Schizophrenia
#Bipolar disorder
-Holding antipsychotics and lithium due to above issues
-Plan to resume lithium tomorrow, clozapine at half dose as well if continues to improve
-IM Haldol as needed ordered in case her psychiatric state worsens
DVT prophylaxis: Subcutaneous heparin
Diet: Pur�ed diet, speech following
CODE STATUS: Full code
Anticipated Discharge: 24 - 48 hours
Subjective/Interval History
-
Date of Service: May 18, 2024
Seen and examined at the bedside. No acute events reported overnight. AFVSS this morning
Remains lethargic though more responsive today. History/ROS limited by her mental state
Denies any complaints
Objective Data
-
Labs:
Laboratory Results
05/18/24
09:55
WBC 10.9 H
Hgb 12.2
Hct 38.9
Plt Count 301
Sodium 156 H D
Potassium 4.2
Chloride 122 H
Carbon Dioxide 23
BUN 17
Creatinine 0.9
Glucose 174 H
Calcium 10.6 H
Vital Signs:
Vital Signs
Temp Pulse Resp BP Pulse Ox
98.3 F 99 17 128/67 97
05/18/24 08:59 05/18/24 03:30 05/18/24 03:30 05/18/24 03:00 05/18/24 01:31
Review of Systems
-
History Source: Patient
All other systems: Reviewed and negative
Physical Exam
-
General: Well Developed, No Apparent Distress, Comfortable and Obese
HEENT: Normocephalic, Atraumatic, Moist Mucous Membranes and Anicteric
Respiratory: Clear to Auscultation and Non Labored Respirations
Cardiac: Regular Rhythm and S1/S2; Negative Murmur, Rub or Gallop
GI: Soft, Nontender, Nondistended and Normal Bowel Sounds
Musculoskeletal: No Clubbing, No Cyanosis and No Edema
Skin: Warm and Dry; Negative Rash
Neuro: Awake, Alert, Oriented, Nonfocal/Grossly Intact and Central Nerve's Intact
Psych: Calm
Data Reviewed
-
Labs: Labs Reviewed by me and Discussed with Patient
--- NOTE | 2024-05-18 12:12 | W.PN.NEURO.1 ---
Today's Communication / Plan
-
.
Subjective/Objective
Subjective Data
Date of Service: May 18, 2024
Neurology follow-up note
reports no complaints. She has been normotensive and afebrile.
According to EMS
Labs: WBCs�13.2�10.9, sodium�147�156, glucose�174, ammonia less than 9, creatinine kinase�22, free T4�normal, UA tox�positive for tricyclic's
MAR: reviewed:
PMH: Psychotic disorder, NOS, diabetes insipidus, CAD, RBBB, DM, hypothyroidism, insomnia, GERD, nicotine addiction, asthma
PSH: Thyroidectomy
SH: [facility] resident since 2001
FH:unknown
All: [place]
ROS: neg for headache, chest pain, abdominal pain
General: Well developed. In no acute distress.
Cardio: Regular rate and rhythm without murmur. Extremities are without cyanosis or edema.
Neuro:
Mental Status: Alert, oriented to name, not to age, year. Knew she is in a hospital. Min eye contact. Follows simple requests intermittently.
Cranial Nerves: R exophonia on primary gaze. Pupils are equally round and reactive to light. EOMs full. Visual burdick full to confrontation. No ptosis. No nystagmus. V1-V3 intact to light touch and pinprick bilaterally, symmetric. Face
symmetric. Normal hearing AU. The palate elevated well. SCMs and traps 5/5. Tongue midline. Mild dysarthria.
Motor: Normal bulk and tone. No pronator or arm drift. Strength 5/5 throughout. No clonus.
Reflexes: neg grasp BL
Sensory: limited due to poor attention
Coordination: No dysmetria or tremor.
Gait: deferred
Assessment and Plan:
I. Multifactorial encephalopathy (metabolic from hypernatremia, hyperglycemia)
II. Hypernatremia
III. Psychotic disorder, NOS
-Aspiration precautions.
-Normalized sodium level
-Brain MRI wo lonny
-PT
-Will follow
I personally reviewed all radiology and labs along with past medical records pertinent to current medical problems. Total time spent in patient care is 36 minutes.
Thank you for allowing us to participate in the care of this patient. We will continue to follow. Please do not hesitate to contact us with any questions or concerns.
Objective Data
Vital Signs
Temp Pulse Resp BP Pulse Ox
36.8 C 99 17 128/67 97
05/18/24 08:59 05/18/24 03:30 05/18/24 03:30 05/18/24 03:00 05/18/24 01:31
Lab Results
05/18/24 09:55
05/18/24 09:55
Sodium 156 mmol/L (135-145) H D 05/18/24 09:55
Potassium 4.2 mmol/L (3.5-5.1) 05/18/24 09:55
BUN 17 mg/dl (7-17) 05/18/24 09:55
Glucose 174 mg/dl (70-99) H 05/18/24 09:55
Calcium 10.6 mg/dl (8.4-10.2) H 05/18/24 09:55
Waf-J-Wjcypgpmhtw Pept < 20.0 pg/ml 05/17/24 14:13
Vitamin B12 380 pg/ml (239-931) 05/17/24 15:43
Ur Buprenorphine Negative (Negative) 05/17/24 13:04
Patient Allergies
No Known Allergies Allergy (Unverified 05/17/24 17:39)
Vital Signs and Labs
-
Vital Signs and Labs:
Vital Signs
Temp Pulse Resp BP Pulse Ox
36.8 C 99 17 128/67 97
05/18/24 08:59 05/18/24 03:30 05/18/24 03:30 05/18/24 03:00 05/18/24 01:31
Lab Results
05/18/24 09:55
05/18/24 09:55
Sodium 156 mmol/L (135-145) H D 05/18/24 09:55
Potassium 4.2 mmol/L (3.5-5.1) 05/18/24 09:55
BUN 17 mg/dl (7-17) 05/18/24 09:55
Glucose 174 mg/dl (70-99) H 05/18/24 09:55
Calcium 10.6 mg/dl (8.4-10.2) H 05/18/24 09:55
Afp-L-Ydcknyhvbmr Pept < 20.0 pg/ml 05/17/24 14:13
Vitamin B12 380 pg/ml (239-931) 05/17/24 15:43
Ur Buprenorphine Negative (Negative) 05/17/24 13:04
Medications
-
Medications:
Generic Name Dose Route Start Last Admin
Trade Name Freq PRN Reason Stop Dose Admin
Acetaminophen 650 mg 05/17/24 17:33
Acetaminophen 325 Mg Tablet PO 06/14/24 17:32
Q4HPRN PRN
mild pain/BOBBY/temp> 100.4F
Bisacodyl 10 mg 05/17/24 17:33
Bisacodyl 10 Mg Rectal Suppository RECTAL 06/14/24 17:32
[id number] PRN
constipation
Carboxymethylcellulose Sodium 1 drops 05/17/24 17:44
Carboxymethylcellulose Ophth Gel (Celluvisc) Droperette BOTH EYES 06/14/24 17:43
BIDPRN PRN
dry eyes
Clozapine 200 mg 05/17/24 20:00 05/17/24 20:48
Clozapine 100 Mg Tablet PO 06/14/24 19:59 Not Given
BID JUAN
Dextrose 12.5 grams 05/17/24 17:33
Dextrose 50% (0.5 Grams/Ml) 50 Ml Syringe IV 06/14/24 17:32
[id number] PRN
hypoglycemia
Protocol
Docusate Sodium 100 mg 05/18/24 08:00
Docusate Sodium 100 Mg Capsule PO 06/15/24 07:59
DAILY JUAN
Glucagon 1 mg 05/17/24 17:33
Glucagon 1 Mg Vial IM 06/14/24 17:32
PRN PRN
hypoglycemia
Protocol
Haloperidol Lactate 1 mg 05/17/24 19:59
Haloperidol 5 Mg/Ml 1 Ml Vial IM 06/14/24 19:58
Q4HPRN PRN
severe agitation
Heparin Sodium 5,000 units 05/17/24 20:00 05/17/24 19:34
Heparin 5,000 Units/Ml 1 Ml Vial SC 06/14/24 19:59 5,000 units
Q12 UJAN Administration
Sodium Chloride 1,000 mls @ 100 mls/hr 05/18/24 12:00
0.45%Nacl IV
.Q10H JUAN
Insulin Aspart 0 units 05/17/24 17:33 05/17/24 18:37
Insulin Aspart Low Resistance 300 Units/3 Ml Pen.Injctr SC 06/14/24 17:32 Not Given
AC JUAN
Protocol
Levothyroxine Sodium 100 mcg 05/18/24 06:00 05/18/24 06:29
Levothyroxine 100 Mcg Tablet PO 06/15/24 05:59 100 mcg
DAILY @ 0600 JUAN Administration
Polyethylene Glycol 17 grams 05/18/24 08:00
Polyethylene Glycol Powder 17 Grams Packet PO 06/15/24 07:59
DAILY JUAN
Polyethylene Glycol 17 grams 05/17/24 17:33
Polyethylene Glycol Powder 17 Grams Packet PO 06/14/24 17:32
DAILYPRN PRN
constipation
Psyllium Hydrophilic Mucilloid 1 packet 05/18/24 08:00
Psyllium Packet PO 06/15/24 07:59
DAILY JUAN
Senna/Docusate Sodium 1 tablet 05/17/24 17:33
Docusate W/Senna (Yanet-Colace) Tablet PO 06/14/24 17:32
BIDPRN PRN
constipation
Sodium Chloride 0 flush 05/17/24 18:00
Sodium Chloride 0.9% (Flush) Syringe IV 06/14/24 17:59
PER PROTOCOL JUAN
Home Medications
-
Home Medications
clozapine 100 mg tablet 200 mg PO BID 10/05/11
docusate sodium 100 mg capsule 100 mg PO DAILY 10/05/11
levothyroxine 100 mcg tablet 100 mcg PO DAILY 10/05/11
lithium carbonate 300 mg capsule 600 mg PO HS 10/05/11
lithium carbonate 300 mg tablet 300 mg PO DAILY 10/05/11
acetaminophen 325 mg tablet 650 mg PO Q6HPRN PRN mild pain 07/30/18
melatonin 3 mg tablet 3 mg PO HS 07/30/18
calcium 500 mg (as carbonate)-vitamin D3 10 mcg (400 unit) tablet (Calcium 500 + D) 1 tab PO BID 05/17/24
carboxymethylcellulose 0.5 %-glycerin 0.9 % eye drops (Refresh Optive) 1 drp BOTH EYES BIDPRN PRN dry eyes 05/17/24
diclofenac sodium 1 % topical gel 0 g topical TIDPRN PRN knee 05/17/24
hydroxyzine HCl 25 mg tablet 25 mg PO Q6HPRN PRN anxiety 05/17/24
metformin 1,000 mg tablet 1,000 mg PO BID 05/17/24
polyethylene glycol 3350 17 gram oral powder packet (Miralax) 17 g PO DAILY 05/17/24
promethazine 6.25 mg/5 mL oral syrup 12.5 mg PO Q6HPRN PRN cough 05/17/24
psyllium husk 0.52 gram capsule 1.04 g PO DAILY 05/17/24
[2024-05-18] MEDS: COLACE 100 MG PO (12:21)
[2024-05-18] MEDS: NOVOLOG FLEXPEN-LOW RESISTANCE SC ×3 (12:21→20:36)
[2024-05-18] MEDS: MIRALAX 17 GRAMS PO (12:21)
[2024-05-18] MEDS: METAMUCIL, KONSYL 1 PACKET PO (12:22)
[2024-05-18] MEDS: HEPARIN 5000 UNITS SC ×2 (12:22→22:29)
[2024-05-18] MEDS: 0.45%NACL 1000 IV (12:24)
[2024-05-18 12:30] LABS: Glucose - Point of Care 140 mg/dl (70-99)
[2024-05-18 12:35] LABS: Glycohemoglobin (HgbA1c) 7.4 % (4.0-5.6)
[2024-05-18] MEDS: NSS IV (12:41)
--- NOTE | 2024-05-18 13:05 | PTCARENOTE ---
pt awake. oriented to self. impulsive. med sitter in room. one person walk along to bathroom. pt picking at ekg leads.
[2024-05-18] MEDS: ESKALITH 300 MG PO (16:04)
[2024-05-18] MEDS: ATARAX 25 MG PO (16:25)
--- NOTE | 2024-05-18 18:00 | PTCARENOTE ---
patient oriented to room and use of call pickett, impulsive and reiterated to her on not trying to remove threat monitoring analyst. video monitor maintained, vss, will continue to monitor.
[2024-05-18 18:29] LABS: Glucose - Point of Care 127 mg/dl (70-99)
[2024-05-18 19:38] VITALS: BP 121/60
[2024-05-18 20:23] LABS: Glucose - Point of Care 117 mg/dl (70-99)
[2024-05-18 21:36] LABS: Glucose - Point of Care 291 mg/dl (70-99)
[2024-05-18] MEDS: CLOZARIL 50 MG PO (22:29)
[2024-05-18] MEDS: NICODERM TRANSDERMAL 21 MG TRANSDERM (22:32)
[2024-05-18 23:43] VITALS: BP 126/70
[2024-05-19] MEDS: 0.45%NACL 1000 IV ×3 (05:47→23:22)
[2024-05-19] MEDS: SYNTHROID 100 MCG PO (05:48)
[2024-05-19 07:02] LABS: % Basophils 0.3 % (0-2); % Immature Granulocytes 0.7 % (0-0.5); % Lymphocytes 18.5 % (20.5-51.1); % Monocytes 6.5 % (1.7-9.3); Absolute Immature Granulocytes 0.1 10^3/uL (0-0.05); Absolute Lymphocytes 1.8 10^3/uL (1.2-3.4); Absolute Monocytes 0.6 10^3/uL (0.1-0.6); Absolute Neutrophils 7.3 10^3/uL (1.4-6.5); Hematocrit 39.8 % (37.0-47.0); Hemoglobin 12.4 g/dL (12.0-16.0); Mean Corp Hgb Conc. 31.2 g/dL (33.0-37.0); Mean Corpuscular Hgb 28.1 pg (27.0-31.0); Mean Corpuscular Volume 90.2 fL (81.0-99.0); Mean Platelet Volume 9.9 fL (7.4-10.4); Nucleated Red Blood Cells % 0 %; Platelet Count 297 10^3/uL (130-400); Red Blood Cell Count 4.41 10^6/uL (4.20-5.40); Red Cell Dist. Width 14.6 % (11.5-14.5); White Blood Cell Count 9.9 10^3/uL (4.8-10.8)
[2024-05-19 07:26] LABS: Glucose - Point of Care 152 mg/dl (70-99)
[2024-05-19 07:30] VITALS: BP 106/56
[2024-05-19 07:30] LABS: Blood Urea Nitrogen 15 mg/dl (7-17); Calcium 9.9 mg/dl (8.4-10.2); Carbon Dioxide 24 mmol/L (22-30); Chloride 123 mmol/L (98-107); Glucose 152 mg/dl (70-99); Potassium 4.3 mmol/L (3.5-5.1); Sodium 156 mmol/L (135-145); eGFR > 60.00
[2024-05-19] MEDS: NOVOLOG FLEXPEN-LOW RESISTANCE 1 UNITS SC ×2 (08:14→12:19)
[2024-05-19] MEDS: COLACE 100 MG PO (08:16)
[2024-05-19] MEDS: 0.45%NACL IV (08:16)
[2024-05-19] MEDS: METAMUCIL, KONSYL 1 PACKET PO (08:16)
[2024-05-19] MEDS: CLOZARIL 50 MG PO ×2 (08:16→21:04)
[2024-05-19] MEDS: MIRALAX 17 GRAMS PO (08:16)
[2024-05-19] MEDS: NICODERM TRANSDERMAL 21 MG TRANSDERM (08:16)
[2024-05-19] MEDS: HEPARIN 5000 UNITS SC ×2 (08:17→21:04)
[2024-05-19 10:14] LABS: Intact PTH 64.4 pg/ml (13.6-85.8)
[2024-05-19 12:07] LABS: Glucose - Point of Care 195 mg/dl (70-99)
--- NOTE | 2024-05-19 12:31 | PTCARENOTE ---
Pt. scheduled for MRI. Nurse received message from MRI that pt's contact for her family member is wrong. Due to pt;s mental status she cannot answer screening question. Nurse contacted [facility] awaiting response for new contact information to
answer screening question.
[2024-05-19 14:54] VITALS: BP 132/74
--- NOTE | 2024-05-19 15:37 | W.PN.HOSP.TC ---
Today's Communication/Plan
-
Continue with clozapine to 100 mg BID and lithium 300 mg BID
Continue with half-normal saline and trend BMP
Monitor mental status
Assessment / Plan
Assessment / Plan
#Acute metabolic encephalopathy
-Suspect secondary to oversedation with psychotropic regimen
-No signs of hypercapnia, or acute focal neurologic deficits
-[place] elevated though only mildly so, unlikely cause
-Mental status has improved since Home regimen was put on hold
-Started to become more agitated, resumed lower dose of meds
-Currently on clozapine 100 twice daily, lithium 300 twice daily, hydroxyzine PRN
-Neurology following, recommended MRI which is pending, will follow-up read
-Plan to resume medications slowly and at lower dose when back to baseline
#Acute on chronic hypernatremia
#Chronic nephrogenic DI
-has chronically elevated sodium due to nephrogenic DI from lithium
-Sodium 147 on arrival, was given isotonic fluids for JORDAN, sodium up to 156
-Do not suspect that this is contributing to her mentation to significant degree
-Transition isotonic fluids to half-normal saline to replace free water deficit
-Remains euvolemic to dry, continue half-normal saline and trend BMP
#Leukocytosis
-Suspect possible aspiration event prior to arrival
-Viral panel is negative, no obvious sign of bacterial infection
-Resolved without antibiotics
#Prerenal JORDAN
-Likely secondary to reduced intake, resolved with IVF
#T2DM with hyperglycemia
-Home metformin held, on ISS with Accu-Cheks
-Hyperglycemia and unlikely high enough to cause encephalopathy
-Blood glucose goal 140-180
#QTc prolongation
-Likely secondary to chronic psychotropic medicines
-Home regimen currently held
-Monitor on telemetry
-EKG ordered today
#Schizophrenia
#Bipolar disorder
-Resuming antipsychotics slowly due to encephalopathy as above
-IM Haldol as needed ordered in case her psychiatric state worsens
DVT prophylaxis: Subcutaneous heparin
Diet: Pur�ed diet, speech following
CODE STATUS: Full code
Anticipated Discharge: 24 - 48 hours
Subjective/Interval History
-
Date of Service: May 19, 2024
Seen and examined at the bedside. No acute events reported overnight. AFVSS this
Serum sodium remains 156 on half-normal saline. Per nursing she is up and out of bed with assistance
Denies any new complaints though ROS limited by mental status
Objective Data
-
Labs:
Laboratory Results
05/19/24
06:07
WBC 9.9
Hgb 12.4
Hct 39.8
Plt Count 297
Sodium 156 H
Potassium 4.3
Chloride 123 H
Carbon Dioxide 24
BUN 15
Creatinine 0.9
Glucose 152 H
Calcium 9.9
Vital Signs:
Vital Signs
Temp Pulse Resp BP Pulse Ox
98.3 F 97 16 132/74 98
05/19/24 14:54 05/19/24 14:54 05/19/24 14:54 05/19/24 14:54 05/19/24 14:54
I&O
05/18/24 05/19/24 05/20/24
06:59 06:59 06:59
Intake Total 550 / 550
Balance 550 / 550
Review of Systems
-
History Source: Patient
All other systems: Reviewed and negative
Physical Exam
-
General: Well Developed, Well Nourished, No Apparent Distress and Comfortable
HEENT: Normocephalic, Atraumatic, Moist Mucous Membranes and Anicteric; Negative Good Dentition
Respiratory: Clear to Auscultation and Non Labored Respirations
Cardiac: Regular Rhythm and S1/S2; Negative Murmur, Rub or Gallop
GI: Soft, Nontender, Nondistended and Normal Bowel Sounds
Musculoskeletal: No Clubbing, No Cyanosis and No Edema
Skin: Warm and Dry; Negative Rash
Neuro: AO x 3, Sedated and Nonfocal/Grossly Intact
Psych: Calm
Data Reviewed
-
Labs: Labs Reviewed by me
[2024-05-19 16:37] LABS: Glucose - Point of Care 209 mg/dl (70-99)
[2024-05-19] MEDS: NOVOLOG FLEXPEN-LOW RESISTANCE 2 UNITS SC (17:22)
[2024-05-19] MEDS: ESKALITH 300 MG PO (21:06)
[2024-05-19 21:50] LABS: Glucose - Point of Care 225 mg/dl (70-99)
[2024-05-19 23:32] VITALS: BP 158/78
[2024-05-20] MEDS: 0.45%NACL 1000 IV ×3 (06:13→17:11)
[2024-05-20] MEDS: SYNTHROID 100 MCG PO (06:13)
[2024-05-20 07:18] LABS: Hematocrit 39.2 % (37.0-47.0); Hemoglobin 12.2 g/dL (12.0-16.0); Mean Corp Hgb Conc. 31.1 g/dL (33.0-37.0); Mean Corpuscular Hgb 28.7 pg (27.0-31.0); Mean Corpuscular Volume 92.2 fL (81.0-99.0); Mean Platelet Volume 9.8 fL (7.4-10.4); Platelet Count 260 10^3/uL (130-400); Red Blood Cell Count 4.25 10^6/uL (4.20-5.40); White Blood Cell Count 8.6 10^3/uL (4.8-10.8)
[2024-05-20 07:29] VITALS: BP 129/78
[2024-05-20 07:48] LABS: Blood Urea Nitrogen 12 mg/dl (7-17); Calcium 9.5 mg/dl (8.4-10.2); Carbon Dioxide 23 mmol/L (22-30); Chloride 126 mmol/L (98-107); Glucose 183 mg/dl (70-99); Magnesium 2.3 mg/dl (1.6-2.3); Potassium 4.4 mmol/L (3.5-5.1); Sodium 158 mmol/L (135-145); eGFR > 60.00
[2024-05-20 08:39] LABS: Glucose - Point of Care 162 mg/dl (70-99)
[2024-05-20] MEDS: NOVOLOG FLEXPEN-LOW RESISTANCE 1 UNITS SC ×3 (08:55→17:09)
[2024-05-20] MEDS: COLACE 100 MG PO (08:57)
[2024-05-20] MEDS: CLOZARIL 50 MG PO ×2 (08:57→20:20)
[2024-05-20] MEDS: METAMUCIL, KONSYL 1 PACKET PO (08:57)
[2024-05-20] MEDS: HEPARIN 5000 UNITS SC ×2 (08:58→20:20)
[2024-05-20] MEDS: MIRALAX 17 GRAMS PO (08:58)
[2024-05-20] MEDS: NICODERM TRANSDERMAL 21 MG TRANSDERM (09:00)
[2024-05-20 09:23] VITALS: BP 129/81; PULSE 97; O2SAT 99
--- NOTE | 2024-05-20 09:36 | W.PN.NEURO.1 ---
Today's Communication / Plan
-
.
Subjective/Objective
Subjective Data
Date of Service: May 20, 2024
Neurology follow-up note
requests to have more soda.
No reports of headache, change in strength or vision. Transiently hypertensive last evening, afebrile.
MRI is pending.
Continues to be hypernatremic up to 158.
PMH: Psychotic disorder, NOS, diabetes insipidus, CAD, RBBB, DM, hypothyroidism, insomnia, GERD, nicotine addiction, asthma
PSH: Thyroidectomy
SH: [facility] resident since 2001
FH:unknown
All: [place]
ROS: neg for headache, chest pain, abdominal pain
General: Well developed. In no acute distress.
Cardio: Regular rate and rhythm without murmur. Extremities are without cyanosis or edema.
Neuro:
Mental Status: Alert, oriented to name, not to age, date of , year. Knew she is in a hospital. Min eye contact. Follows simple requests intermittently.
Cranial Nerves: R exophonia on primary gaze. Pupils are equally round and reactive to light. EOMs full. Visual burdick full to confrontation. No ptosis. No nystagmus. V1-V3 intact to light touch and pinprick bilaterally, symmetric. Face
symmetric. Normal hearing AU. The palate elevated well. SCMs and traps 5/5. Tongue midline. Mild dysarthria.
Motor: Normal bulk and tone. No pronator or arm drift. Strength 5/5 throughout. No clonus.
Reflexes: neg grasp BL
Sensory: limited due to poor attention
Coordination: No dysmetria or tremor.
Gait: deferred
Assessment and Plan:
I. Multifactorial encephalopathy (metabolic, developmental?)
II. Hypernatremia
III. Psychotic disorder, NOS
-Aspiration precautions.
-Normalized sodium level
-PT
-Please recall neurology service after brain MRI is completed
I personally reviewed all radiology and labs along with past medical records pertinent to current medical problems. Total time spent in patient care is 35 minutes.
Thank you for allowing us to participate in the care of this patient. Please do not hesitate to contact us with any questions or concern
Objective Data
Vital Signs
Temp Pulse Resp BP Pulse Ox
37.0 C 92 16 129/78 99
05/20/24 07:29 05/20/24 07:29 05/20/24 07:29 05/20/24 07:29 05/20/24 07:29
Lab Results
05/20/24 07:08
05/20/24 07:08
Sodium 158 mmol/L (135-145) H 05/20/24 07:08
Potassium 4.4 mmol/L (3.5-5.1) 05/20/24 07:08
BUN 12 mg/dl (7-17) 05/20/24 07:08
Glucose 183 mg/dl (70-99) H 05/20/24 07:08
Calcium 9.5 mg/dl (8.4-10.2) 05/20/24 07:08
Vrt-Q-Samdlnmcaea Pept < 20.0 pg/ml 05/17/24 14:13
Vitamin B12 380 pg/ml (239-931) 05/17/24 15:43
Ur Buprenorphine Negative (Negative) 05/17/24 13:04
Patient Allergies
No Known Allergies Allergy (Unverified 05/17/24 17:39)
--- NOTE | 2024-05-20 12:30 | W.PN.HOSP.TC ---
Addendum entered and electronically signed by Wale Oglesby DO 05/28/24 17:54:
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
Original Note:
Today's Communication/Plan
-
Continue half-normal saline and trend BMP
Hold lithium
Clozapine to 100 mg twice daily
IM Haldol if needed
Assessment / Plan
Assessment / Plan
#Acute metabolic encephalopathy
-Suspect secondary to oversedation with psychotropic regimen
-No signs of hypercapnia, or acute focal neurologic deficits
-[place] elevated though only mildly so, unlikely cause
-Mental status has improved since Home regimen was put on hold
-Started to become more agitated, resumed lower dose of meds
-Currently on clozapine 100 twice daily, and hydroxyzine PRN; holding lithium
-Neurology following, recommended MRI which is pending, will follow-up read
#Acute on chronic hypernatremia
#Chronic nephrogenic DI
-has chronically elevated sodium due to nephrogenic DI from lithium
-Sodium 147 on arrival, was given isotonic fluids for JORDAN, sodium up to 156
-Do not suspect that this is contributing to her mentation to significant degree
-Transition isotonic fluids to half-normal saline to replace free water deficit
-Sodium increased to 158 on half-normal saline, lithium discontinued today
-No signs of hypervolemia; continue half-normal saline and trend BMP
-Started sodium restriction with diet
#Leukocytosis
-Suspect possible aspiration event prior to arrival
-Viral panel is negative, no obvious sign of bacterial infection
-Resolved without antibiotics
#Prerenal JORDAN
-Likely secondary to reduced intake, resolved with IVF
#T2DM with hyperglycemia
-Home metformin held, on ISS with Accu-Cheks
-Hyperglycemia and unlikely high enough to cause encephalopathy
-Blood glucose goal 140-180
#QTc prolongation
-Likely secondary to chronic psychotropic medicines
-Home regimen currently held
-Monitor on telemetry
-EKG ordered today
#Schizophrenia
#Bipolar disorder
-Resuming antipsychotics slowly due to encephalopathy as above
-IM Haldol as needed ordered in case her psychiatric state worsens
DVT prophylaxis: Subcutaneous heparin
Diet: Pur�ed diet, sodium restricted
CODE STATUS: Full code
Anticipated Discharge: 24 - 48 hours
Subjective/Interval History
-
Date of Service: May 20, 2024
Seen and examined at the bedside. No acute events reported overnight. AFVSS this morning
Mental status stable. Serum sodium up to 158 from 156, despite half-normal saline. [place] discontinued now.
Denies acute complaints
Objective Data
-
Labs:
Laboratory Results
05/20/24
07:08
WBC 8.6
Hgb 12.2
Hct 39.2
Plt Count 260
Sodium 158 H
Potassium 4.4
Chloride 126 H
Carbon Dioxide 23
BUN 12
Creatinine 0.9
Glucose 183 H
Calcium 9.5
Vital Signs:
Vital Signs
Temp Pulse Resp BP Pulse Ox
98.6 F 92 16 129/78 99
05/20/24 07:29 05/20/24 07:29 05/20/24 07:29 05/20/24 07:29 05/20/24 07:29
I&O
05/19/24 05/20/24 05/21/24
06:59 06:59 06:59
Intake Total 550 / 550 2099
Balance 550 / 550 2099
Review of Systems
-
History Source: Patient
All other systems: Reviewed and negative
Physical Exam
-
General: Well Developed, No Apparent Distress, Comfortable and Obese
HEENT: Normocephalic, Atraumatic, Moist Mucous Membranes and Anicteric
Respiratory: Clear to Auscultation and Non Labored Respirations
Cardiac: Regular Rhythm and S1/S2; Negative Murmur, Rub or Gallop
GI: Soft, Nontender, Nondistended and Normal Bowel Sounds
Musculoskeletal: No Clubbing, No Cyanosis and No Edema
Skin: Warm, Dry and Normal Turgor; Negative Rash
Neuro: AO x 3 and Nonfocal/Grossly Intact; Negative Tremors
Psych: Calm
Data Reviewed
-
Labs: Labs Reviewed by me and Discussed with Patient
[2024-05-20 12:38] LABS: Glucose - Point of Care 190 mg/dl (70-99)
[2024-05-20 15:05] VITALS: BP 143/87
[2024-05-20 16:39] LABS: Glucose - Point of Care 176 mg/dl (70-99)
[2024-05-20 21:32] LABS: Glucose - Point of Care 224 mg/dl (70-99)
[2024-05-20 23:32] VITALS: BP 110/59
[2024-05-21] MEDS: 0.45%NACL 1000 IV (02:52)
[2024-05-21] MEDS: SYNTHROID 100 MCG PO (06:12)
[2024-05-21 07:43] LABS: Glucose - Point of Care 169 mg/dl (70-99)
--- NOTE | 2024-05-21 07:45 | PN.CDI ---
CDI
- -
CDI:
Physician Documentation Request
Admit Date: 05/17/24 16:45
Dear Doctor Mendel,
Please review the following and provide your response in the progress notes.
Clinical Indicators:
SPEECH THERAPY SWALLOW EVALUATION, 05/18
#...exhibits clinical signs of oropharyngeal dysphagia, ...
#...HIGH RISK for aspiration and related complications due to confusion/impulsivity
#...and impaired cognitive status.
#Aspiration precautions: 100% supervision and 1:1 assistance; Upright positioning;
RECOMMEND:
#3) Aspiration precautions: 100% supervision and 1:1 assistance; Upright positioning; Only feed when awake/alert; Small single sips only (pinch straw to limit size/rate of intake);
PN, 05/20
#Leukocytosis
#...-Suspect possible aspiration event prior to arrival
#...-Viral panel is negative, no obvious sign of bacterial infection
#...-Resolved without antibiotics
Based on the above and your clinical assessment, please clarify the condition/diagnosis monitored, evaluated and/or treated....
Aspiration Pneumonitis - indicate substance such as food or vomitus, oils or other solids or liquids
Other (please specify)
Use of terms such as suspected, likely, concern for, or probable (associated with a specific diagnosis that is being evaluated, monitored, or treated as if it exists) are acceptable and can be coded in the inpatient setting, when documented at the
time of discharge.
Thank you,
Jolene Clark RN BSN CCDS
CDI Specialist
please contact via tiger text
Please use your independent medical judgment in providing your response.
[2024-05-21 08:06] VITALS: BP 123/67
[2024-05-21] MEDS: NICODERM TRANSDERMAL 21 MG TRANSDERM (08:08)
[2024-05-21] MEDS: METAMUCIL, KONSYL 1 PACKET PO (08:09)
[2024-05-21] MEDS: MIRALAX 17 GRAMS PO (08:09)
[2024-05-21] MEDS: CLOZARIL 50 MG PO ×2 (08:09→20:13)
[2024-05-21] MEDS: HEPARIN 5000 UNITS SC ×2 (08:10→20:14)
[2024-05-21] MEDS: COLACE 100 MG PO (08:10)
[2024-05-21] MEDS: ATARAX 25 MG PO (08:15)
[2024-05-21 08:28] LABS: Blood Urea Nitrogen 13 mg/dl (7-17); Carbon Dioxide 22 mmol/L (22-30); Chloride 128 mmol/L (98-107); Glucose 157 mg/dl (70-99); Potassium 4.5 mmol/L (3.5-5.1); Sodium 158 mmol/L (135-145); eGFR > 60.00
[2024-05-21] MEDS: VITAMIN B-12 1000 MCG PO (10:50)
[2024-05-21] MEDS: SODIUM CHLORIDE 1009.625 MEQ IV ×2 (10:50→18:00)
[2024-05-21] MEDS: 0.45%NACL IV (11:37)
--- NOTE | 2024-05-21 11:48 | W.CON.NEPH ---
Consultation
-
Date/Time Consultation Requested: May 21t 9 AM
Date/Time Consultation Performed: May 21, 2024 at 12 PM
Requesting Provider: Dr. Garza
Performing Provider: Dr. Guanako heart
Reason for Consultation: Hyponatremia
Medical History
-
Chief Complaint: Hypernatremia
History of Present Illness:
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 Per history from the facility, developed influenza and
April 2024 that was complicated by bronchitis.
Renal consult for hyponatremia with sodium 147 on admission and given normal saline with JORDAN increase sodium to 158
The patient is responsive she did have altered mental status on admission uncertain to her baseline.
uncertain to how long she has been on lithium she did tell me 3 months but I do question that
Past Medical History
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
Social History
No illicit drugs no alcohol
Family History
No pertinent renal disease
Allergies / Home Medications
Allergy/AdvReac Type Severity Reaction Status Date / Time
No Known Allergies Allergy Unverified 05/17/24 17:39
�Medication �Instructions �Recorded �Confirmed �Type
clozapine 100 mg tablet 200 mg PO BID 10/05/11 05/17/24 History
docusate sodium 100 mg capsule 100 mg PO DAILY 10/05/11 05/17/24 History
levothyroxine 100 mcg tablet 100 mcg PO DAILY 10/05/11 05/17/24 History
lithium carbonate 300 mg capsule 600 mg PO HS 10/05/11 05/17/24 History
lithium carbonate 300 mg tablet 300 mg PO DAILY 10/05/11 05/17/24 History
acetaminophen 325 mg tablet 650 mg PO Q6HPRN PRN mild pain 07/30/18 05/17/24 History
melatonin 3 mg tablet 3 mg PO HS 07/30/18 05/17/24 History
calcium 500 mg (as 1 tab PO BID 05/17/24 05/17/24 History
carbonate)-vitamin D3 10 mcg (400
unit) tablet (Calcium 500 + D)
carboxymethylcellulose 0.5 1 drp BOTH EYES BIDPRN PRN dry eyes 05/17/24 05/17/24 History
%-glycerin 0.9 % eye drops
(Refresh Optive)
diclofenac sodium 1 % topical gel 0 g topical TIDPRN PRN knee 05/17/24 05/17/24 History
hydroxyzine HCl 25 mg tablet 25 mg PO Q6HPRN PRN anxiety 05/17/24 05/17/24 History
metformin 1,000 mg tablet 1,000 mg PO BID 05/17/24 05/17/24 History
polyethylene glycol 3350 17 gram 17 g PO DAILY 05/17/24 05/17/24 History
oral powder packet (Miralax)
promethazine 6.25 mg/5 mL oral 12.5 mg PO Q6HPRN PRN cough 05/17/24 05/17/24 History
syrup
psyllium husk 0.52 gram capsule 1.04 g PO DAILY 05/17/24 05/17/24 History
Review of Systems
-
No chest pain shortness of breath nausea or vomiting
Physical Exam
Vital Signs
Vital Signs
Temp Pulse Resp BP Pulse Ox
98.4 F 88 14 123/67 100
05/21/24 08:06 05/21/24 08:06 05/21/24 08:06 05/21/24 08:06 05/21/24 08:06
Lab Results
WBC 8.6 10^3/uL (4.8-10.8) 05/20/24 07:08
RBC 4.25 10^6/uL (4.20-5.40) 05/20/24 07:08
Hgb 12.2 g/dL (12.0-16.0) 05/20/24 07:08
Hct 39.2 % (37.0-47.0) 05/20/24 07:08
Plt Count 260 10^3/uL (130-400) 05/20/24 07:08
Sodium 158 mmol/L (135-145) H 05/21/24 07:06
Potassium 4.5 mmol/L (3.5-5.1) 05/21/24 07:06
Chloride 128 mmol/L (98-107) H 05/21/24 07:06
Carbon Dioxide 22 mmol/L (22-30) 05/21/24 07:06
BUN 13 mg/dl (7-17) 05/21/24 07:06
Creatinine 0.8 mg/dL (0.6-1.0) 05/21/24 07:06
eGFR > 60.00 05/21/24 07:06
Glucose 157 mg/dl (70-99) H 05/21/24 07:06
Calcium 9.0 mg/dl (8.4-10.2) 05/21/24 07:06
Fsu-R-Lelylinsnyd Pept < 20.0 pg/ml 05/17/24 14:13
Albumin 3.7 g/dl (3.5-5.0) 05/17/24 12:37
Physical Exam
General no acute distress
HEENT no cephalic atraumatic extraocular muscle intact no scleral icterus no JVD neck supple
lungs clear to auscultation bilateral
heart regular S1-S2 positive
abdomen soft nontender positive bowel sounds
extremities no edema pulses present bilateral
Neurologically nonfocal alert and oriented x 3
Skin no lesions no abrasions no petechiae
Psych flat affect
Data Reviewed
-
MRI: Image Personally Visualized and interpreted
Assessment/Plan
-
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 Per history from the facility, developed influenza and
April 2024 that was complicated by bronchitis.
Renal consult for hyponatremia with sodium 147 on admission and given normal saline with JORDAN increase sodium to 158
Impression:
Hyponatremia
JORDAN resolved
Bipolar on lithium
Pneumonia questionable
Plan:
Approximately 5.5 L water deficit calculated with out a weight recorded.
Okay with quarter normal saline for now but would likely need to switch that to D5W
I will increase the rate to 150 cc/h
Monitor urine output as able. Currently no Hinton catheter.
Check urine awesome.
Would be cautious with above discontinuing of lithium if she has been on it chronically
Psych consult pending
[2024-05-21 12:05] LABS: Glucose - Point of Care 228 mg/dl (70-99)
[2024-05-21] MEDS: NOVOLOG FLEXPEN-LOW RESISTANCE SC (12:06)
[2024-05-21] MEDS: NOVOLOG FLEXPEN-LOW RESISTANCE 2 UNITS SC (12:06)
--- NOTE | 2024-05-21 13:08 | CS.PSYCHR ---
Consult Summary - Psychiatry
-
Pt is a 63 yo female, with history of Schizophrenia/ Schizoaffective d/o, admitted with TME, hypernatremia, prolonged QT. Long-standing meds- Gurdon being held and Clozapine decreased from 200 mg BID to 50 mg BID. WBC and neutrophils are
okay/mildly increased. Gurdon level on admission 05/17/24 was 1.3. On exam, pt alert, sitting up in bed, making eye contact, sensorium appears intact. Pt is a poor historian, not able to give information, oriented only to self, states she 'forgot'
the date. Pt states she feels okay, shows no signs of active psychosis or mood disturbance. QTc 507 on admission 05/17, 497 on 05/20. Sodium persistently elevated, more since admission, 158 today.
Psych Hx: no details available, resides at [facility], long hx of Schizophrenia/Schizoaffective d/o, maintained on Clozaril and Gurdon, provider information not available
SH: resides at [facility], unable to obtain further info
MSE: alert, oriented to name only, answered '[facility]' for place. Makes good eye contact, sensorium appears intact. Poverty of speech, but coherent, no signs of active psychosis or mood disturbance. Affect blunted. Insight limited
Imp: TME- multifactorial
Schizophrenia/Schizoaffective d/o by history, appears stable at present. long-standing meds Clozapine dose greatly decreased, and Gurdon being held
Rec: Would titrate Clozapine back up when medically more stable, given history of psychotic illness; should check Clozapine level when dose stabilized
Would consider alternative to Gurdon if pt needs a mood-stabilizer (possibly Lamictal). Need to try to obtain further history
Will follow
[2024-05-21 15:45] VITALS: BP 127/73
--- NOTE | 2024-05-21 16:10 | W.PN.HOSP.TC ---
Today's Communication/Plan
-
Hypotonic fluids
Restart metformin
I will defer Clozaril and lithium management to psychiatry.
Assessment / Plan
Assessment / Plan
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
CVS: S1-S2 normal
Chest: CTA B/L
Abdomen: Soft, NT / Bowel sounds present
Extremities: No edema, normal pulses
TYPEWRITERS FUNCTIONAL TESTER: Confused, Alert, Non focal exam
#Acute metabolic encephalopathy
Likely secondary to hypernatremia
Slightly elevated lithium level-
Mental status improved
MRI of the brain- No convincing acute intracranial process.
# Acute on chronic hyponatremia
Questionable history of nephrogenic DI from lithium
Sodium 158
Free water deficit 5.8 L
Start quarter normal saline(avoid D5W with diabetes)
[employer] placed on hold
# JORDAN-prerenal secondary to fluid loss
IV fluids
# Type 2 diabetes with hyperglycemia
Restart metformin
SSI
Hemoglobin A1c 7.4
# Schizophrenia
Clozaril 200 mg twice daily, lithium 300 in AM and 600 at bedtime as outpatient
On hydroxyzine as needed for anxiety
Med changes noted
Psychiatric evaluation given meds on hold and dose changes
I am hesitant to manage psychiatric medicines therefore psychiatry consulted. If she has been stable on lithium may need to be added back
Psychiatry also looking into Lamictal
# Hypothyroidism-continue Synthroid. Thyroid function in 6 weeks
# Low normal [id number]
# Smoker-Cessation counseling
# DVT prophylaxis-Lovenox
# Full code
D/W RN
D/W Psyche
Called Brother -listed number for Julia is wrong. Lady answered and stated that somebody called a couple days ago also.
No contact information at this point
Anticipated Discharge: 24 - 48 hours
Subjective/Interval History
-
Date of Service: May 21, 2024
Objective Data
-
Labs:
Laboratory Results
05/21/24
07:06
Sodium 158 H
Potassium 4.5
Chloride 128 H
Carbon Dioxide 22
BUN 13
Creatinine 0.8
Glucose 157 H
Calcium 9.0
Vital Signs:
Vital Signs
Temp Pulse Resp BP Pulse Ox
97.6 F 93 16 127/73 100
05/21/24 15:45 05/21/24 15:45 05/21/24 15:45 05/21/24 15:45 05/21/24 15:45
I&O
05/20/24 05/21/24 05/22/24
06:59 06:59 06:59
Intake Total 2099
Balance 2099
[2024-05-21 16:58] LABS: Glucose - Point of Care 190 mg/dl (70-99)
[2024-05-21] MEDS: GLUCOPHAGE 1000 MG PO (17:12)
[2024-05-21] MEDS: NOVOLOG FLEXPEN-LOW RESISTANCE 1 UNITS SC (18:00)
[2024-05-21] MEDS: OSCAL 500 + D 500 MG PO (20:13)
[2024-05-21] MEDS: MELATONIN 3 MG PO (21:19)
[2024-05-21 21:43] LABS: Glucose - Point of Care 185 mg/dl (70-99)
--- NOTE | 2024-05-21 21:58 | VATNOTE ---
pt removed IV; this VAT RN attempted restart x3 unsuccessful. Another VAT RN to try.
[2024-05-21 23:00] VITALS: BP 147/79
[2024-05-22 04:35] LABS: Blood Urea Nitrogen 20 mg/dl (7-17); Carbon Dioxide 20 mmol/L (22-30); Chloride 121 mmol/L (98-107); Glucose 160 mg/dl (70-99); Potassium 4.4 mmol/L (3.5-5.1); Sodium 149 mmol/L (135-145); eGFR > 60.00
[2024-05-22] MEDS: SODIUM CHLORIDE 1009.625 MEQ IV ×2 (04:43→14:38)
[2024-05-22] MEDS: SYNTHROID 100 MCG PO (05:17)
[2024-05-22 07:30] VITALS: BP 142/72
[2024-05-22 07:44] LABS: Glucose - Point of Care 133 mg/dl (70-99)
[2024-05-22] MEDS: NOVOLOG FLEXPEN-LOW RESISTANCE SC ×3 (09:18→21:07)
[2024-05-22] MEDS: NICODERM TRANSDERMAL 21 MG TRANSDERM (09:19)
[2024-05-22] MEDS: HEPARIN 5000 UNITS SC ×2 (09:19→21:05)
[2024-05-22] MEDS: METAMUCIL, KONSYL 1 PACKET PO (09:19)
[2024-05-22] MEDS: MIRALAX 17 GRAMS PO (09:21)
[2024-05-22] MEDS: COLACE 100 MG PO (09:21)
[2024-05-22] MEDS: GLUCOPHAGE 1000 MG PO ×2 (09:21→17:50)
[2024-05-22] MEDS: VITAMIN B-12 1000 MCG PO (09:22)
[2024-05-22] MEDS: OSCAL 500 + D 500 MG PO ×2 (09:22→21:05)
[2024-05-22] MEDS: CLOZARIL 50 MG PO ×2 (09:22→21:05)
--- NOTE | 2024-05-22 10:51 | W.PN.UPDATE ---
Update Note
Progress Note Update
Patient seen, chart reviewed, discussed with RN. Ms. Sorensen appears stable overall. She is oriented to self only, mumbles at times but does not seem to be responding to internal stimuli. No active signs of psychosis. She has been cooperative her
in the hospital but can be somewhat impulsive at times (wants to jump right out of bed).
Impression/Recommendations: TME - multifactorial; Schizophrenia/Schizoaffective disorder by history - Appears stable at this time with med adjustments that have been made. Clozapine dose decreased to 50mg BID from 200mg BID, Mcdougal held. Mcdougal
is more likely the cause of symptoms as levels were supratherapeutic on admission. No further OP history yet available for review. Would obtain EKG in AM to further assess QTC. Continue to monitor electrolytes. Will need to further assess if
increasing Clozaril and/or adding mood stabilizer is warranted. Psych to follow.
--- NOTE | 2024-05-22 11:58 | W.PN.NEPH.PH ---
Today's Communication / Plan
-
Increase free water
IV fluids stopped
Assessment/Plan
-
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 Per history from the facility, developed influenza and
April 2024 that was complicated by bronchitis.
Renal consult for hyponatremia with sodium 147 on admission and given normal saline with JORDAN increase sodium to 158
Impression:
Hyponatremia
JORDAN resolved
Bipolar on lithium
Pneumonia questionable
Plan:
Approximately 5.5 L water deficit calculated on initial consult
Okay with quarter normal saline for now but would likely need to switch that to D5W
Monitor urine output as able. Currently no Hinton catheter.
Psych consult noted/lithium held/level is 1.3 with normal renal function
Sodium improved to 148 IV fluids discontinued
Urine osmolality ordered
-
-
Date of Service: May 22, 2024
CC / HPI / ROS
-
Chief Complaint:
Hypernatremia
History of Present Illness:
Initial sodium 158 improved to 149 lithium held
Review of Systems:
No chest pain or shortness of breath
Labs
-
Labs:
WBC 8.6 10^3/uL (4.8-10.8) 05/20/24 07:08
RBC 4.25 10^6/uL (4.20-5.40) 05/20/24 07:08
Hgb 12.2 g/dL (12.0-16.0) 05/20/24 07:08
Hct 39.2 % (37.0-47.0) 05/20/24 07:08
Plt Count 260 10^3/uL (130-400) 05/20/24 07:08
Sodium 149 mmol/L (135-145) H D 05/22/24 03:55
Potassium 4.4 mmol/L (3.5-5.1) 05/22/24 03:55
Chloride 121 mmol/L (98-107) H 05/22/24 03:55
Carbon Dioxide 20 mmol/L (22-30) L 05/22/24 03:55
BUN 20 mg/dl (7-17) H 05/22/24 03:55
Creatinine 0.9 mg/dL (0.6-1.0) 05/22/24 03:55
eGFR > 60.00 05/22/24 03:55
Glucose 160 mg/dl (70-99) H 05/22/24 03:55
Calcium 9.0 mg/dl (8.4-10.2) 05/22/24 03:55
Tgq-N-Ejyqkfocfvt Pept < 20.0 pg/ml 05/17/24 14:13
Albumin 3.7 g/dl (3.5-5.0) 05/17/24 12:37
Physical Exam
-
Vital Signs:
Vital Signs
Temp Pulse Resp BP Pulse Ox
98.0 F 85 16 142/72 97
05/22/24 07:30 05/22/24 07:30 05/22/24 07:30 05/22/24 07:30 05/22/24 07:30
Respiratory:: Bilateral: CTA
Lung Excursion:: Normal
Bowel Sounds:: Normal
Extremity Edema:: None: Bilateral:
Hinton Catheter: No
--- NOTE | 2024-05-22 12:00 | CM ---
Addendum entered by Nay Espinal RN 05/22/24 16:58:
Called [facility] spoke with Devorah YIN she said Gissel had visited pt today at hospital. Reviewed PT with her. Devorah had same number for pts brother which was incorrect.
Requested a call back by nursing tomorrow. Pt soon ready for dc.[facility]
report [phone] ext [phone]
fax [phone]
Original Note:
Pt lives at [facility].
LM x2 for [facility] to return call.
Will review PT OT with .
Pt has had fall in past.
Pt has Psychiatric hx on medicines.
2 Numbers for Brother Maximus are wrong on chart.Will ask [facility] for additional #.
PLAN Probable return to [facility]
[2024-05-22 13:36] LABS: Glucose - Point of Care 135 mg/dl (70-99)
--- NOTE | 2024-05-22 13:51 | W.PN.HOSP.TC ---
Today's Communication/Plan
-
BMP tomorrow
Psychiatry to make adjustments to psychiatric medicines
Discharge planning
Assessment / Plan
Assessment / Plan
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
CVS: S1-S2 normal
Chest: CTA B/L
Abdomen: Soft, NT / Bowel sounds present
Extremities: No edema, normal pulses
HULL BUILDER: Confused, Alert, Non focal exam
#Acute metabolic encephalopathy
Likely secondary to hypernatremia
Slightly elevated lithium level
Mental status improved
MRI of the brain- No convincing acute intracranial process.
# Acute on chronic hyponatremia
Questionable history of nephrogenic DI from lithium
Sodium 149
Started quarter normal saline(avoid D5W with diabetes)-continue 1 more liter
[place] placed on hold
# JORDAN-prerenal secondary to fluid loss
IV fluids
# Type 2 diabetes with hyperglycemia
Restarted metformin
SSI
Hemoglobin A1c 7.4
# Schizophrenia
Clozaril 200 mg twice daily, lithium 300 in AM and 600 at bedtime as outpatient
On hydroxyzine as needed for anxiety
Med changes noted Clozaril changed to 50 mg twice daily and also lithium s held
Psychiatric following
I am hesitant to manage psychiatric medicines therefore psychiatry consulted. If she has been stable on lithium may need to be added back
Psychiatry also looking into Lamictal
# Hypothyroidism-continue Synthroid. Thyroid function in 6 weeks
# Low normal [id number]
# Smoker-Cessation counseling
# DVT prophylaxis-Lovenox
# Full code
D/W RN at bedside
Called Brother -listed number for Julia is wrong. Lady answered and stated that somebody called a couple days ago also.
No contact information at this point
Anticipated Discharge: Within 24 hours
Subjective/Interval History
-
Date of Service: May 22, 2024
Objective Data
-
Labs:
Laboratory Results
05/22/24
03:55
Sodium 149 H D
Potassium 4.4
Chloride 121 H
Carbon Dioxide 20 L
BUN 20 H
Creatinine 0.9
Glucose 160 H
Calcium 9.0
Vital Signs:
Vital Signs
Temp Pulse Resp BP Pulse Ox
98.0 F 85 16 142/72 97
05/22/24 07:30 05/22/24 07:30 05/22/24 07:30 05/22/24 07:30 05/22/24 07:30
I&O
05/21/24 05/22/24 05/23/24
06:59 06:59 06:59
Intake Total 1680 / 1680 480 / 480 480 / 480
Balance 1680 / 1680 480 / 480 480 / 480
[2024-05-22] MEDS: SENOKOT 8.6 MG PO (14:38)
[2024-05-22 14:51] LABS: Osmolality Urine 115 mOsm/kg (300-900)
--- NOTE | 2024-05-22 14:56 | PTOTSP ---
ST Follow-Up
Pt currently presents with clinical signs of mild oropharyngeal dysphagia characterized by prolonged mastication and bolus formation as well as occasional coughing with liquid ingestion that is elicited/exacerbated by impulsivity and unsafe
ingestion practices (sticking straw far back in oral cavity). Pt's risk for choking/aspiration is elevated due to her waxing/waning mental status.
Recommendations:
- Upgrade pt's diet to SOFT BITE SIZED SOLIDS, continue with thin liquids and encourage pt to take SMALL SINGLE SIPS ONLY, meds as tolerated.
- Aspiration precautions: HOB fully upright for all PO intake; CLOSE Supervision for ALL PO Intake; small single sips; small bites; slow intake; alternate bites/sips.
- INGOT STRIPPER to f/u re: diet tolerance and to determine if pt would benefit from an instrumental swallow study.
[2024-05-22 15:02] VITALS: BP 137/82
[2024-05-22 16:28] LABS: Glucose - Point of Care 200 mg/dl (70-99)
[2024-05-22 20:47] LABS: Glucose - Point of Care 119 mg/dl (70-99)
[2024-05-22] MEDS: MELATONIN 3 MG PO (21:05)
[2024-05-22] MEDS: SENOKOT 17.2 MG PO (21:13)
[2024-05-22 23:00] VITALS: BP 135/70
[2024-05-23] MEDS: SYNTHROID 100 MCG PO (05:16)
[2024-05-23 06:54] LABS: Blood Urea Nitrogen 12 mg/dl (7-17); Calcium 8.8 mg/dl (8.4-10.2); Carbon Dioxide 20 mmol/L (22-30); Chloride 121 mmol/L (98-107); Glucose 155 mg/dl (70-99); Potassium 4.6 mmol/L (3.5-5.1); Sodium 149 mmol/L (135-145); eGFR > 60.00
[2024-05-23 07:39] VITALS: BP 137/60
[2024-05-23 07:59] LABS: Glucose - Point of Care 137 mg/dl (70-99)
[2024-05-23] MEDS: HEPARIN 5000 UNITS SC ×2 (08:48→21:22)
[2024-05-23] MEDS: METAMUCIL, KONSYL 1 PACKET PO (08:48)
[2024-05-23] MEDS: COLACE 100 MG PO (08:48)
[2024-05-23] MEDS: NICODERM TRANSDERMAL 21 MG TRANSDERM (08:48)
[2024-05-23] MEDS: OSCAL 500 + D 500 MG PO ×2 (08:48→21:22)
[2024-05-23] MEDS: MIRALAX 17 GRAMS PO (08:48)
[2024-05-23] MEDS: VITAMIN B-12 1000 MCG PO (08:48)
[2024-05-23] MEDS: GLUCOPHAGE 1000 MG PO ×2 (08:50→16:59)
[2024-05-23] MEDS: CLOZARIL 50 MG PO ×2 (08:50→21:22)
[2024-05-23] MEDS: NOVOLOG FLEXPEN-LOW RESISTANCE SC (08:51)
[2024-05-23 10:40] VITALS: BP 126/70; PULSE 99; O2SAT 98; O2SAT 99
[2024-05-23 11:41] LABS: Glucose - Point of Care 238 mg/dl (70-99)
--- NOTE | 2024-05-23 11:51 | W.PN.UPDATE ---
Update Note
Progress Note Update
patient seen chart reviewed. discussed with dr davis. the patient has long psych hx and comes to w what seems to be metabolic encephalopathy. she was taking lithium and level was high at 1.3. it has since been dced and i would not restart it.
she is pleasant and interactive although she is not a great talker. she told me a bit about [facility] where she lives. she reports she is eating ok. her sleep is ok. she has no sx at this point which suggest active psychosis. she watches tv to
pass the time. would continue w current dose of clozaril. it may need to be increased but it is better to increase slowly. she did tell me she felt sleepy on the dose of meds she was taking aircraft captain. dr hart is considering dc today and i see no
reason not to discharge her back to [facility]
--- NOTE | 2024-05-23 12:38 | W.PN.HOSP.TC ---
Today's Communication/Plan
-
Hypotonic fluids
Check BMP in the morning
Accurate intake output charting please
Assessment / Plan
Assessment / Plan
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
CVS: S1-S2 normal
Chest: CTA B/L
Abdomen: Soft, NT / Bowel sounds present
Extremities: No edema, normal pulses
ICE CREAM SCOOPER: Confused, Alert, Non focal exam
#Acute metabolic encephalopathy
Likely secondary to hypernatremia
Slightly elevated lithium level
Mental status improved
MRI of the brain- No convincing acute intracranial process.
# Acute on chronic hyponatremia
Questionable history of nephrogenic DI from lithium
Sodium 149 today without IV fluids yesterday
[place] .
Accurate intake output charting
# JORDAN-prerenal secondary to fluid loss
Resolved
# Type 2 diabetes with hyperglycemia
Restarted metformin
SSI
Hemoglobin A1c 7.4
# Schizophrenia
Clozaril 200 mg twice daily, lithium 300 in AM and 600 at bedtime as outpatient
On hydroxyzine as needed for anxiety
Med changes noted Clozaril changed to 50 mg twice daily and also lithium stopped
Psychiatric following
I am hesitant to manage psychiatric medicines therefore psychiatry consulted. If she has been stable on lithium may need to be added back
# Hypothyroidism-continue Synthroid. Thyroid function in 6 weeks
# Low normal [id number]
# Smoker-Cessation counseling
# DVT prophylaxis-Lovenox
# Full code
D/W RN at bedside
Discussed with psychiatry
Discussed with nephrology
Called Brother -listed number for Julia is wrong. Ladgiuseppe answered and stated that somebody called a couple days ago also.
No contact information at this point
Anticipated Discharge: Within 24 hours
Subjective/Interval History
-
Date of Service: May 23, 2024
Objective Data
-
Labs:
Laboratory Results
05/23/24
06:08
Sodium 149 H
Potassium 4.6
Chloride 121 H
Carbon Dioxide 20 L
BUN 12
Creatinine 0.7
Glucose 155 H
Calcium 8.8
Vital Signs:
Vital Signs
Temp Pulse Resp BP Pulse Ox
98.4 F 94 18 137/60 97
05/23/24 07:39 05/23/24 07:39 05/23/24 07:39 05/23/24 07:39 05/23/24 07:39
I&O
05/22/24 05/23/24 05/24/24
06:59 06:59 06:59
Intake Total 480 / 480 4580 / 4580
Output Total 1200 / 1200
Balance 480 / 480 3380 / 3380
[2024-05-23] MEDS: NOVOLOG FLEXPEN-LOW RESISTANCE 2 UNITS SC (13:08)
--- NOTE | 2024-05-23 15:15 | W.PN.NEPH.PH ---
Today's Communication / Plan
-
Will add hypotonic IV fluids
Follow-up BMP
Assessment/Plan
-
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 Per history from the facility, developed influenza and
April 2024 that was complicated by bronchitis.
Renal consult for hyponatremia with sodium 147 on admission and given normal saline with JORDAN increase sodium to 158
Impression:
Hyponatremia
JORDAN resolved
Bipolar on lithium
Pneumonia questionable
Plan:
Approximately 5.5 L water deficit calculated on initial consult
will add back hypotonic ivfS for persistent hypernatremia
serum sodium elevated at 149
Monitor urine output , she is very thirsty and drinking
urine oms 115 consistent with DI
[place]obe now discontinued
-
-
Date of Service: May 23, 2024
CC / HPI / ROS
-
Chief Complaint:
Hypernatremia
History of Present Illness:
Initial sodium 158 improved to 149 lithium held
Hemodynamically stable
Review of Systems:
No chest pain or shortness of breath
Very thirsty
Polyuria
Labs
-
Labs:
WBC 8.6 10^3/uL (4.8-10.8) 05/20/24 07:08
RBC 4.25 10^6/uL (4.20-5.40) 05/20/24 07:08
Hgb 12.2 g/dL (12.0-16.0) 05/20/24 07:08
Hct 39.2 % (37.0-47.0) 05/20/24 07:08
Plt Count 260 10^3/uL (130-400) 05/20/24 07:08
Sodium 149 mmol/L (135-145) H 05/23/24 06:08
Potassium 4.6 mmol/L (3.5-5.1) 05/23/24 06:08
Chloride 121 mmol/L (98-107) H 05/23/24 06:08
Carbon Dioxide 20 mmol/L (22-30) L 05/23/24 06:08
BUN 12 mg/dl (7-17) 05/23/24 06:08
Creatinine 0.7 mg/dL (0.6-1.0) 05/23/24 06:08
eGFR > 60.00 05/23/24 06:08
Glucose 155 mg/dl (70-99) H 05/23/24 06:08
Calcium 8.8 mg/dl (8.4-10.2) 05/23/24 06:08
Vbm-P-Sucttregrnu Pept < 20.0 pg/ml 05/17/24 14:13
Albumin 3.7 g/dl (3.5-5.0) 05/17/24 12:37
Physical Exam
-
Vital Signs:
Vital Signs
Temp Pulse Resp BP Pulse Ox
98.4 F 94 18 137/60 97
05/23/24 07:39 05/23/24 07:39 05/23/24 07:39 05/23/24 07:39 05/23/24 07:39
Respiratory:: Bilateral: CTA
Lung Excursion:: Normal
Bowel Sounds:: Normal
Extremity Edema:: None: Bilateral:
Hinton Catheter: No
[2024-05-23 15:36] VITALS: BP 143/69
[2024-05-23 16:36] LABS: Glucose - Point of Care 161 mg/dl (70-99)
--- NOTE | 2024-05-23 16:37 | CM ---
Received call from [facility] to review needs.
CM requested PT OT to reevaluate pt.
PT eval said pt is supervision.
Called back [facility] after PT done. Spoke with Devorah RN on evening shift. Reviewed PT eval recommendation is VN.
Devorah said that she should go to SNF . Explained insurance will not cover if pt is supervision.
Devorah given number [phone] to have Gissel call in am and speak with CM tomorrow.
PLAN Return to [facility] with possible VN
[2024-05-23] MEDS: SODIUM CHLORIDE 1009.625 MEQ IV (16:57)
[2024-05-23] MEDS: NOVOLOG FLEXPEN-LOW RESISTANCE 1 UNITS SC (16:59)
[2024-05-23] MEDS: MELATONIN 3 MG PO (21:22)
[2024-05-23] MEDS: SENOKOT 17.2 MG PO (21:22)
[2024-05-23 22:00] LABS: Glucose - Point of Care 133 mg/dl (70-99)
[2024-05-23 23:55] VITALS: BP 132/80
--- NOTE | 2024-05-23 23:55 | PTCARENOTE ---
Pt w/urinary frequency and incontinent. PVR 217 mL.
[2024-05-24] MEDS: SYNTHROID 100 MCG PO (06:39)
[2024-05-24] MEDS: SODIUM CHLORIDE 1009.625 MEQ IV (06:39)
[2024-05-24 06:56] LABS: Blood Urea Nitrogen 12 mg/dl (7-17); Carbon Dioxide 23 mmol/L (22-30); Chloride 117 mmol/L (98-107); Glucose 158 mg/dl (70-99); Potassium 4.2 mmol/L (3.5-5.1); Sodium 147 mmol/L (135-145); eGFR > 60.00
[2024-05-24 07:34] LABS: Glucose - Point of Care 144 mg/dl (70-99)
[2024-05-24 07:54] VITALS: BP 127/73
[2024-05-24] MEDS: METAMUCIL, KONSYL 1 PACKET PO (09:09)
[2024-05-24] MEDS: NICODERM TRANSDERMAL 21 MG TRANSDERM (09:09)
[2024-05-24] MEDS: COLACE 100 MG PO (09:10)
[2024-05-24] MEDS: VITAMIN B-12 1000 MCG PO (09:10)
[2024-05-24] MEDS: GLUCOPHAGE 1000 MG PO (09:10)
[2024-05-24] MEDS: OSCAL 500 + D 500 MG PO (09:10)
[2024-05-24] MEDS: CLOZARIL 50 MG PO (09:10)
[2024-05-24] MEDS: HEPARIN 5000 UNITS SC (09:10)
[2024-05-24] MEDS: NOVOLOG FLEXPEN-LOW RESISTANCE SC (09:11)
[2024-05-24] MEDS: MIRALAX 17 GRAMS PO (09:11)
--- NOTE | 2024-05-24 10:30 | VNURNOTE ---
[facility] liaison met with patient at bedside. Discussed [facility] and PT services. Patient is agreeable. [facility] brochure provided with contact information. Home Health Liaison spoke with nurse Venecia at [facility]. Explained [facility] services. She is
familiar with [facility]. Reviewed [facility] nurse/therapy, visits, schedule and homebound status. Reviewed that visits at home will be 2-3 x per week to assess and teach medical management. [facility] contact info provided. Venecia and patient are aware that
[facility] will contact them for start of care in 1-2 days after discharge from .
[facility] referral completed in [facility].
[2024-05-24 11:25] LABS: Glucose - Point of Care 220 mg/dl (70-99)
--- NOTE | 2024-05-24 11:54 | CM ---
Addendum entered by Gildardo Jacobson 05/24/24 12:27:
Discharge order noted.
CM spoke to [facility] ANNAMARIA Cuadra, she is aware of pt's discharge, pt is accepted for admission today.
Please call for nursing report to phone number provided below.
to arrange transportation BLS. [facility] completed and left with [facility].
D/C plan: return back to [facility] personal care with [facility] and staff support.
Original Note:
CM following re: discharge planning.
Reviewed pt's chart, met with pt, spoke to [facility] storage administrator Gissel and [facility] ANNAMARIA Cuadra.
PT and OT evaluations noted - home PT/OT recommended.
CM discussed it in details with [facility] storage administrator Gissel and ANNAMARIA Cuadra and they expressed their agreement and [facility] requested. A referral to [facility] made.
[facility] ANNAMARIA Cuadra requested nursing report on the day of discharge.
Both [facility] storage administrator Gissel and ANNAMARIA Cuadra requested ambulance to transport the pt at discharge. [facility] completed ands left on chart.
[facility] nursing report: [phone] x [phone] ask for Venecia or her cell: [phone]
Discharge instructions fax: [facility]: [phone] and [facility]: [phone].
D/C plan: return back to [facility] with [facility] and staff support.
CM will follow with discharge plan updates as hospitalization progresses.
[2024-05-24] MEDS: NOVOLOG FLEXPEN-LOW RESISTANCE 2 UNITS SC (11:56)
--- NOTE | 2024-05-24 12:10 | W.PN.HOSP.TC ---
Today's Communication/Plan
-
Discharge
Assessment / Plan
Assessment / Plan
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
CVS: S1-S2 normal
Chest: CTA B/L
Abdomen: Soft, NT / Bowel sounds present
Extremities: No edema, normal pulses
VEHICLE DAMAGE APPRAISER: Confused, Alert, Non focal exam
#Acute metabolic encephalopathy
Likely secondary to hypernatremia
Slightly elevated lithium level- Obion stopped.
Mental status improved, at baseline.
MRI of the brain- No convincing acute intracranial process.
# Acute on chronic hyponatremia
Questionable history of nephrogenic DI from lithium
Sodium 147 today
Obion stopped.
No accurate intake output charting.
# JORDAN-prerenal secondary to fluid loss
Resolved
# Type 2 diabetes with hyperglycemia
Restarted metformin
SSI
Hemoglobin A1c 7.4
# Schizophrenia
Clozaril 200 mg twice daily, lithium 300 in AM and 600 at bedtime as outpatient
On hydroxyzine as needed for anxiety
Med changes noted Clozaril changed to 50 mg twice daily and also lithium stopped
Psychiatric following
# Hypothyroidism-continue Synthroid. Thyroid function in 6 weeks
# Low normal [id number]
# Smoker-Cessation counseling
# DVT prophylaxis-Lovenox
# Full code
D/W RN at bedside
Discussed with nephrology- OK for discharge
Called Brother -listed number for Julia is wrong. Lady answered and stated that somebody called a couple days ago also.
No contact information at this point
Called moreno Purvis RN cell-no answer
[phone]-cyck does not seem to be working
Case management discussed with More[facility] valera. They are okay with accepting patient back
More than 30 minutes spent in discharge including
Final examination of the patient
Summarizing hospital stay
Instructions for continuing care to all relevant caregivers
Preparation of discharge records, prescriptions, and referral forms
Total time spent (in minutes): discharge tiime 36 min
Anticipated Discharge: Today
Subjective/Interval History
-
Date of Service: May 24, 2024
Objective Data
-
Labs:
Laboratory Results
05/24/24
05:09
Sodium 147 H
Potassium 4.2
Chloride 117 H
Carbon Dioxide 23
BUN 12
Creatinine 0.8
Glucose 158 H
Calcium 10.0
Vital Signs:
Vital Signs
Temp Pulse Resp BP Pulse Ox
98.4 F 92 18 127/73 96
05/24/24 07:54 05/24/24 07:54 05/24/24 07:54 05/24/24 07:54 05/24/24 07:54
I&O
05/23/24 05/24/24 05/25/24
06:59 06:59 06:59
Intake Total 4580 / 4580 5920 / 5920
Output Total 1200 / 1200
Balance 3380 / 3380 5920 / 5920
--- NOTE | 2024-05-24 12:13 | W.DS.TRANS ---
Addendum entered and electronically signed by Meli Garza MD 05/24/24 16:52:
Dictation- [id number]
Original Note:
DC Summary - Mathematics Faculty Member
-
Discharge Instructions:
Discharge Diagnosis/Procedures Acute metabolic encephalopathy
Acute on chronic hyponatremia
Acute Kidney Injury
Type 2 diabetes
Schizophrenia
Hypothyroidism
Low normal B12
Diet 2 Gram Sodium
Activity As tolerated,With assistance
Driving Restrictions No driving
Blood Work BMP 4-5 days
Other Services VN
Instructions:
Stand-Alone Forms:
Changes to Home Medications: Yes
Discharge Medications:
DC Medications w/original date entered in [employer]
docusate sodium 100 mg capsule 100 mg PO DAILY Constipation 10/05/11
levothyroxine 100 mcg tablet 100 mcg PO DAILY Thyroid 10/05/11
acetaminophen 325 mg tablet 650 mg PO Q6HPRN PRN mild pain 07/30/18
melatonin 3 mg tablet 3 mg PO HS sleep 07/30/18
calcium 500 mg (as carbonate)-vitamin D3 10 mcg (400 unit) tablet (Calcium 500 + D) 1 tab PO BID Supplement 05/17/24
carboxymethylcellulose 0.5 %-glycerin 0.9 % eye drops (Refresh Optive) 1 drp BOTH EYES BIDPRN PRN dry eyes 05/17/24
diclofenac sodium 1 % topical gel 0 g topical TIDPRN PRN knee 05/17/24
hydroxyzine HCl 25 mg tablet 25 mg PO Q6HPRN PRN anxiety 05/17/24
metformin 1,000 mg tablet 1,000 mg PO BID Diabetes 05/17/24
polyethylene glycol 3350 17 gram oral powder packet (Miralax) 17 g PO DAILY Constipation 05/17/24
promethazine 6.25 mg/5 mL oral syrup 12.5 mg PO Q6HPRN PRN cough 05/17/24
psyllium husk 0.52 gram capsule 1.04 g PO DAILY Constipation 05/17/24
clozapine 25 mg tablet 50 mg (2 x 25 mg) PO BID Mental Health/Anxiety #60 tabs 05/23/24
cyanocobalamin (vitamin B-12) 1,000 mcg tablet 1,000 mcg PO DAILY low normal B12 #30 tabs 05/23/24
Home Medication Changes
Clozapine dose reduced
Vitamin B12 is new
Tiro stopped
Pending Results: No
--- NOTE | 2024-05-24 12:14 | W.DS.TRANS ---
DC Summary - Manufacturing Engineering Manager
-
Discharge Instructions:
Discharge Diagnosis/Procedures Acute metabolic encephalopathy
Acute on chronic hyponatremia
Acute Kidney Injury
Type 2 diabetes
Schizophrenia
Hypothyroidism
Low normal B12
Diet 2 Gram Sodium
Activity As tolerated,With assistance
Driving Restrictions No driving
Blood Work BMP 4-5 days
Other Services VN
Instructions:
Stand-Alone Forms:
Changes to Home Medications: Yes
Discharge Medications:
DC Medications w/original date entered in [employer]
docusate sodium 100 mg capsule 100 mg PO DAILY Constipation 10/05/11
levothyroxine 100 mcg tablet 100 mcg PO DAILY Thyroid 10/05/11
acetaminophen 325 mg tablet 650 mg PO Q6HPRN PRN mild pain 07/30/18
melatonin 3 mg tablet 3 mg PO HS sleep 07/30/18
calcium 500 mg (as carbonate)-vitamin D3 10 mcg (400 unit) tablet (Calcium 500 + D) 1 tab PO BID Supplement 05/17/24
carboxymethylcellulose 0.5 %-glycerin 0.9 % eye drops (Refresh Optive) 1 drp BOTH EYES BIDPRN PRN dry eyes 05/17/24
diclofenac sodium 1 % topical gel 0 g topical TIDPRN PRN knee 05/17/24
hydroxyzine HCl 25 mg tablet 25 mg PO Q6HPRN PRN anxiety 05/17/24
metformin 1,000 mg tablet 1,000 mg PO BID Diabetes 05/17/24
polyethylene glycol 3350 17 gram oral powder packet (Miralax) 17 g PO DAILY Constipation 05/17/24
promethazine 6.25 mg/5 mL oral syrup 12.5 mg PO Q6HPRN PRN cough 05/17/24
psyllium husk 0.52 gram capsule 1.04 g PO DAILY Constipation 05/17/24
clozapine 25 mg tablet 50 mg (2 x 25 mg) PO BID Mental Health/Anxiety #60 tabs 05/23/24
cyanocobalamin (vitamin B-12) 1,000 mcg tablet 1,000 mcg PO DAILY low normal B12 #30 tabs 05/23/24
Home Medication Changes
lithium stopped
Clozaril reduced
Pending Results: No
--- NOTE | 2024-05-24 13:40 | W.PN.NEPH.PH ---
Today's Communication / Plan
-
For discharge
Follow-up BMP next week
Assessment/Plan
-
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 Per history from the facility, developed influenza and
April 2024 that was complicated by bronchitis.
Renal consult for hyponatremia with sodium 147 on admission and given normal saline with JORDAN increase sodium to 158
Impression:
Hyponatremia
JORDAN resolved
Bipolar on lithium
Pneumonia questionable
Plan:
Approximately 5.5 L water deficit calculated on initial consult
will add back hypotonic ivfS for persistent hypernatremia
serum sodium elevated at 147 after hypotonic IV fluids provided
She will be discharged off lithium
She is encouraged to drink as much as possible in the setting of her diabetes insipidus
Will need a follow-up BMP early next week to assess for possible continued hypernatremia
-
-
Date of Service: May 24, 2024
CC / HPI / ROS
-
Chief Complaint:
Hypernatremia
History of Present Illness:
Initial sodium 158 improved to 147lithium held
Hemodynamically stable
Review of Systems:
No chest pain or shortness of breath
Very thirsty
Polyuria
Labs
-
Labs:
WBC 8.6 10^3/uL (4.8-10.8) 05/20/24 07:08
RBC 4.25 10^6/uL (4.20-5.40) 05/20/24 07:08
Hgb 12.2 g/dL (12.0-16.0) 05/20/24 07:08
Hct 39.2 % (37.0-47.0) 05/20/24 07:08
Plt Count 260 10^3/uL (130-400) 05/20/24 07:08
Sodium 147 mmol/L (135-145) H 05/24/24 05:09
Potassium 4.2 mmol/L (3.5-5.1) 05/24/24 05:09
Chloride 117 mmol/L (98-107) H 05/24/24 05:09
Carbon Dioxide 23 mmol/L (22-30) 05/24/24 05:09
BUN 12 mg/dl (7-17) 05/24/24 05:09
Creatinine 0.8 mg/dL (0.6-1.0) 05/24/24 05:09
eGFR > 60.00 05/24/24 05:09
Glucose 158 mg/dl (70-99) H 05/24/24 05:09
Calcium 10.0 mg/dl (8.4-10.2) 05/24/24 05:09
Kvc-T-Pdmrwcllcae Pept < 20.0 pg/ml 05/17/24 14:13
Albumin 3.7 g/dl (3.5-5.0) 05/17/24 12:37
Physical Exam
-
Vital Signs:
Vital Signs
Temp Pulse Resp BP Pulse Ox
98.4 F 92 18 127/73 96
05/24/24 07:54 05/24/24 07:54 05/24/24 07:54 05/24/24 07:54 05/24/24 07:54
Respiratory:: Bilateral: CTA
Lung Excursion:: Normal
Bowel Sounds:: Normal
Extremity Edema:: None: Bilateral:
[place]inton Catheter: No
--- NOTE | 2024-05-24 14:21 | W.PN.UPDATE ---
Update Note
Progress Note Update
patient seen chart reviewed. patient offers no complaints justs asks 'when am i going home?' was able to tell her she is leaving today around 3 pm. she continues to be without overt psychotic sx. she is pleasant and cooperative. she is not having
auditory or visual hallucinations. she does not appear paranoid. would not change current psych meds. she will see her usual psychiatrist when dc'ed and he can increase meds depending on her presentation.
[2024-05-24 15:27] VITALS: BP 129/79
== END 2024-05-24 16:44 | disposition home health service (06) | DRG 682 ==
LOC: 3 WEST ACU 16:45
PROVIDERS: Emergency Medicine; Registered Nurse; ADMITTING PHYSICIAN Internal Medicine; ATTENDING PHYSICIAN Hospitalist; CONSULT PHYSICIAN Internal Medicine Nephrology; CONSULT PHYSICIAN Psychiatry & Neurology Neurology; CONSULT PHYSICIAN Psychiatry & Neurology Psychiatry; EMERGENCY PHYSICIAN Emergency Medicine; FAMILY PHYSICIAN Family Medicine
DX: N17.9 Acute kidney failure, unspecified (principal); G93.41 Metabolic encephalopathy; E87.1 Hypo-osmolality and hyponatremia; N25.1 Nephrogenic diabetes insipidus; E11.65 Type 2 diabetes mellitus with hyperglycemia; F25.9 Schizoaffective disorder, unspecified; E89.0 Postprocedural hypothyroidism; Z79.890 Hormone replacement therapy; K59.00 Constipation, unspecified; R29.6 Repeated falls; F17.200 Nicotine dependence, unspecified, uncomplicated; D72.810 Lymphocytopenia; Z79.84 Long term (current) use of oral hypoglycemic drugs; F31.9 Bipolar disorder, unspecified; E86.0 Dehydration; G47.00 Insomnia, unspecified; I10 Essential (primary) hypertension; I25.10 Atherosclerotic heart disease of native coronary artery without angina pectoris; J45.909 Unspecified asthma, uncomplicated; K21.9 Gastro-esophageal reflux disease without esophagitis; Z91.81 History of falling; T50.995A Adverse effect of other drugs, medicaments and biological substances, initial encounter; Z11.52 Encounter for screening for COVID-19
CPT/HCPCS: 70450; 70551; 71046; 80048; 80053; 80178; 80306; 81003; 82077; 82140; 82550; 82607; 82805; 82962; 83036; 83735; 83880; 83935; 83970; 84145; 84439; 84443; 85025; 85027; 87040; 87070; 87502; 87807; 87811; 92526; 92610; 93005; 96360; 97116; 97162; 97530; 97535; 99285